=== PATIENT | male | born 1950 | race Caucasian/White ===

== ENCOUNTER 2018-01-19 03:23 | Emergency (ER) | payer MEDICARE ==
[~2018-01-19] VITALS: Ht 157.5 cm; Wt 117.9 kg
[~2018-01-19 03:23] MED LIST: ALPRAZOLAM0.25 M1 PO; ASPIRIN CHEW81 MG PO; BISACODYL5 MG PO; CEPHALEXIN500 MG PO; CLINDAMYCIN HC150 MG PO; FLAGYL500 MG PO; LEVAQUIN500 MG PO; METFORMIN HCL500 MG PO; METHADOSE40 M1 PO; METOPROLOL SUCC50 MG PO; PEPCID20 MG PO; PREDNISONE5 G1 PO; PROAIR HFA INH8.5 GM; PROMETHAZINE HC25 M1 PO; SUCRALFATE1 GM PO; ZOCOR20 MG PO; ZOFRAN ODT4 MG SL
[2018-01-19] MEDS ORDERED: TETANUS/DIPHTHERIA TOX ADULT 0.5 ML SYR IM ONE (03:45)
[2018-01-19] MEDS ORDERED: BACITRACIN ZINC 0.9GM TP ONE (04:11)
== END 2018-01-19 05:03 | disposition home or self-care (01) ==
LOC: ER 03:37
DX: S50.312A Abrasion of left elbow, initial encounter (principal); S61.412A Laceration without foreign body of left hand, initial encounter; W45.8XXA Other foreign body or object entering through skin, initial encounter; Y92.512 Supermarket, store or market as the place of occurrence of the external cause
CPT/HCPCS: 90714; 99283

== ENCOUNTER 2019-09-18 19:12 | Emergency (ER) | payer MEDICARE ==
[~2019-09-18] VITALS: Ht 157.5 cm; Wt 117.9 kg
[2019-09-18] MEDS ORDERED: ONDANSETRON HCL 4 MG ORAL DISINTEGRATING TAB PO ONE (20:30)
[2019-09-18] MEDS ORDERED: ONDANSETRON HCL 4 MG ORAL DISINTEGRATING TAB ONE (20:30)
--- OUTSIDE RECORDS SUMMARY | 2019-09-19 14:08 | XMS REPORT ---
Author Author [facility] Address Unknown Phone Unavailable Care Team Providers Care Home Advisor Name Role Phone Unavailable Unavailable Payers Payer Name Policy Type Policy Number Effective Date Expiration Date Problems This patient has no known problems. Allergies, Adverse Reactions, Alerts Allergy Name Allergy Type Status Severity Reaction(s) Onset Date Inactive Date Treating Clinician Comments No Known Allergies DA Active U 2016-02-21 00:00:00 Medications This patient has no known medications.
== END 2019-09-18 20:55 | disposition home or self-care (01) ==
LOC: ER 19:12
DX: R11.0 Nausea (principal); I10 Essential (primary) hypertension; E11.9 Type 2 diabetes mellitus without complications; K21.9 Gastro-esophageal reflux disease without esophagitis; E78.5 Hyperlipidemia, unspecified; Z79.84 Long term (current) use of oral hypoglycemic drugs; Z79.82 Long term (current) use of aspirin; F17.200 Nicotine dependence, unspecified, uncomplicated
CPT/HCPCS: 99282; Q0162

== ENCOUNTER 2019-12-04 14:40 | Emergency (ER) | payer MEDICARE ==
[~2019-12-04] VITALS: Ht 157.5 cm; Wt 117.9 kg
[2019-12-04 15:31] VITALS: BP 142/90
== END 2019-12-04 15:35 | disposition home or self-care (01) ==
LOC: ER 14:40
DX: F41.1 Generalized anxiety disorder (principal); I10 Essential (primary) hypertension; E11.9 Type 2 diabetes mellitus without complications; K21.9 Gastro-esophageal reflux disease without esophagitis; E78.5 Hyperlipidemia, unspecified; G89.29 Other chronic pain; Z79.891 Long term (current) use of opiate analgesic
CPT/HCPCS: 99282

== ENCOUNTER 2019-12-19 15:14 | Inpatient (IN) | payer MEDICARE, OTHER ==
[~2019-12-19] VITALS: Ht 157.5 cm; Wt 89.9 kg
[~2019-12-19 15:14] MED LIST changes: +ZOFRAN ODT4 MG PO; -ZOFRAN ODT4 MG SL
[2019-12-19] MEDS ORDERED: LORAZEPAM 0.5 MG TAB PO ONE (15:30)
[2019-12-19] MEDS ORDERED: LORAZEPAM 0.5 MG TAB ONE (15:48)
[2019-12-19 16:47] LABS: BASOPHILS % 0.4 % (0.0-1.0); EOSINOPHILS # (AUTO) 0.1 (0.0-0.4); EOSINOPHILS % 1.2 % (0.0-6.0); HEMOGLOBIN 9.5 g/dL (14.0-18.0); LYMPHOCYTES # (AUTO) 1.5 (1.0-3.2); MEAN CORPUSCULAR HEMOGLOBIN 22.1 pg (28-32); MEAN CORPUSCULAR HGB CONC 28.8 g/dL (31-35); MEAN CORPUSCULAR VOLUME 76.9 fL (81-99); MONOCYTES # (AUTO) 0.5 (0.2-0.8); MONOCYTES % 5.8 % (4.4-11.3); NEUTROPHILS % 74.4 % (38.7-80.0); PLATELET COUNT 322 x10e3/uL (140-360); RED BLOOD COUNT 4.29 x10e6/uL (4.3-5.7); RED CELL DISTRIBUTION WIDTH 17.8 % (11.7-14.4)
[2019-12-19 17:04] LABS: ALBUMIN 4.1 g/dL (3.5-5.0); ANION GAP 18.9 mmol/L (8-16); CALCIUM 11.4 mg/dL (8.4-10.2); CREATININE, SERUM 1.76 mg/dL (0.72-1.25)
[2019-12-19 17:11] LABS: CREATINE KINASE MB 1.7 ng/mL (0-5.0)
[2019-12-19] MEDS ORDERED: POTASSIUM CHLORIDE 20 MEQ TAB CR PO STA (17:23)
[2019-12-19 17:24] LABS: POTASSIUM 2.9 mmol/L (3.5-5.1)
--- NOTE | 2019-12-19 17:56 | Diagnostic Imaging Report ---
EXAM: CHEST SINGLE (NOT PORTABLE) DATE: 12/19/2019 3:25 PM INDICATION: Dyspnea ^ERMD ORDER ^[id number] ^[id number] ^Y COMPARISON: Chest x-ray, 02/20/2017 FINDINGS: Lines and tubes: None Cardiac silhouette is normal in size. There are patchy airspace opacities at both lung bases, similar to the most recent previous exam.. Pleural thickening is again seen along the lateral aspects of the right and left hemithorax. No pleural effusion or pneumothorax. Upper abdomen unremarkable. No acute bony abnormality. Anchors are seen in the left humeral head. IMPRESSION: Chronic bibasilar airspace opacities, similar to 02/20/2017, which likely represent scarring, possibly recurrent atelectasis or infection in the proper clinical setting. No pleural effusion or pneumothorax. Signed by: Dr. Glenn Houston M.D. on 12/19/2019 5:52 PM
--- NOTE | 2019-12-19 22:00 | NUR ---
patient pulled from lobby at 1217
[2019-12-19] MEDS ORDERED: DILTIAZEM HCL 5 MG/ML 5 ML VIAL IV STA (22:08)
[2019-12-19] MEDS ORDERED: POTASSIUM CHLORIDE 20 MEQ TAB CR PO ONE (22:12)
[2019-12-19] MEDS ORDERED: LORAZEPAM INJ 2 MG/ML VIAL IV ONE (23:45)
[2019-12-20] VITALS (9 sets, daily range): BP systolic 123–161; BP diastolic 61–84
--- NOTE | 2019-12-20 01:42 | NUR ---
PATIENT IN BED ASLEEP, REFUSED BP CUFF READING, PATIENT UNDER NO DISTRESS, BED LIGHT IS IN REACH
--- NOTE | 2019-12-20 04:50 | NUR ---
Admitted to room 201 via stretcher from home alone. Alert and orient to name, date, hospital, and diagnosis: new onset Afib, CP, hypokalemia. Ambulates with cane at bedside. Has home O2 at bedside. O2 @3L via NC, sat 99%. Skin warm and dry. Redness in bilateral groins and abdominal folds. c/o mild chronic right knee pain. Denies chest pain at this time. Meds reviewed and reconciled to med list. Last BM 12/19. Denies dysuria. Abdomen round and distended, hx hernia repair. Oriented to room. Call light within reach. Bed low and locked.
[2019-12-20 05:16] LABS: ANION GAP 15.9 mmol/L (8-16); CALCIUM 11.2 mg/dL (8.4-10.2); CREATININE, SERUM 1.54 mg/dL (0.72-1.25); POTASSIUM 3.9 mmol/L (3.5-5.1)
[2019-12-20 05:24] LABS: CREATINE KINASE MB 1.7 ng/mL (0-5.0)
--- NOTE | 2019-12-20 07:00 | NUR ---
BEDSIDE SHIFT REPORT RECEIVED FROM FOURDRINIER TENDER NURSE. PT DENIES NEEDS AT THIS TIME.
--- NOTE | 2019-12-20 15:12 | NUR ---
Nutrition Screen Note RD Recommendation for Physician: -Continue diet as ordered Plan of Care: RD following, monitoring for tolerance and adequacy Nutrition reason for involvement: Nutrition risk trigger MST Primary Diagnose(s): chest pain, unspecified hypokalemia PMH: None indicated in chart Ht: 62in Wt: 198.56lb BMI: 36.3kg/m2 IBW: 118lb +/- 10% RD Assessment: (12/19) Chart reviewed. Labs and meds reviewed. 69yo M, who was admitted for chest pain and hypokalemia. K has improved (WNL). Visited pt in the room. Pt was sound asleep. Observed almost 100% meal intake on bedside. Pt appeared to be obese without any noted muscle and fat loss. Per RN, no GI concern at this time. Will continue to monitor and follow. Current Diet: cardiac diet Malnutrition Evaluation (12/20/2019) The patient does not meet criteria for a specified degree of malnutrition at this time. Will re-evaluate at follow-up as appropriate. Diet Education Needs Assessment: Diet education not indicated. Nutrition Care Level: low Signed: Lizz Barbosa, MS, RD, LD
[2019-12-20] MEDS ORDERED: PROMETHAZINE HCL 25 MG TAB PO PRN (15:15)
[2019-12-20] MEDS ORDERED: BISACODYL 5 MG TAB EC PO SCH (15:15)
[2019-12-20] MEDS: METHADONE HCL 10 MG TAB PO SCH (16:51)
[2019-12-20] MEDS: SODIUM CHLORIDE 0.9% 1000ML 1,000 ML IV SCH (16:51)
[2019-12-20] MEDS: SUCRALFATE 1 GM TAB PO SCH (16:52)
[2019-12-20] MEDS: FAMOTIDINE 20 MG TAB PO SCH (16:52)
[2019-12-20 17:12] LABS: CREATINE KINASE MB 2.2 ng/mL (0-5.0)
[2019-12-20] MEDS: NYSTATIN/TRIAMCINOLONE 15 GM CR TOP SCH (17:49)
[2019-12-20] MEDS: SIMVASTATIN 20 MG TAB PO SCH (20:29)
[2019-12-20] MEDS: METOPROLOL SUCCINATE 50 MG TAB XL PO SCH (20:40)
[2019-12-20 23:30] LABS: BILIRUBIN,URINE SMALL (NEGATIVE); CLARITY,URINE CLOUDY (CLEAR); COLOR,URINE YELLOW (YELLOW); KETONES,URINE NEGATIVE (NEGATIVE); LEUKOCYTE ESTERASE ,URINE NEGATIVE (NEGATIVE); NITRITE,URINE NEGATIVE (NEGATIVE); PROTEIN,URINE DIPSTICK 2+ (NEGATIVE); URINE UROBILINOGEN 0.2 mg/dL (0.2 - 1)
[2019-12-20 23:39] LABS: BACTERIA,URINE MANY /HPF; WBC,URINE (MAN) 21-50 /HPF (0-5)
[2019-12-20 23:40] LABS: EPITHELIAL CELLS,URINE FEW /LPF; MUCUS,URINE MANY (RARE); RENAL EPITHELIAL CELLS,URINE MANY; TRANSITIONAL EPI CELLS,URINE MODERATE
[2019-12-21] VITALS (9 sets, daily range): BP systolic 87–142; BP diastolic 60–76
[2019-12-21] MEDS: SODIUM CHLORIDE 0.9% 1000ML 1,000 ML IV SCH ×3 (02:51→19:17)
[2019-12-21 05:08] LABS: BASOPHILS % 0.4 % (0.0-1.0); EOSINOPHILS # (AUTO) 0.4 (0.0-0.4); EOSINOPHILS % 4.3 % (0.0-6.0); HEMATOCRIT 29.3 % (38.2-49.6); HEMOGLOBIN 8.1 g/dL (14.0-18.0); LYMPHOCYTES # (AUTO) 2.5 (1.0-3.2); LYMPHOCYTES % 28.1 % (18.0-39.1); MEAN CORPUSCULAR HEMOGLOBIN 21.6 pg (28-32); MEAN CORPUSCULAR HGB CONC 27.6 g/dL (31-35); MEAN CORPUSCULAR VOLUME 78.1 fL (81-99); MONOCYTES # (AUTO) 0.7 (0.2-0.8); MONOCYTES % 8.1 % (4.4-11.3); NEUTROPHILS # (AUTO) 5.2 (2.1-6.9); NEUTROPHILS % 58.8 % (38.7-80.0); PLATELET COUNT 261 x10e3/uL (140-360); RED BLOOD COUNT 3.75 x10e6/uL (4.3-5.7); RED CELL DISTRIBUTION WIDTH 18.1 % (11.7-14.4)
[2019-12-21] MEDS: ACETAMINOPHEN 325 MG TAB PO PRN ×2 (05:20→20:41)
[2019-12-21 05:32] LABS: ANION GAP 9.6 mmol/L (8-16); CALCIUM 10.4 mg/dL (8.4-10.2); CHOL/HDL RATIO 4.7 (3.9-4.7); CREATININE, SERUM 1.27 mg/dL (0.72-1.25); MAGNESIUM 1.7 MG/DL (1.3-2.1); PHOSPHORUS 2.3 MG/DL (2.3-4.7); POTASSIUM 3.6 mmol/L (3.5-5.1)
[2019-12-21 05:54] LABS: THYROID STIMULATING HORMONE 0.316 uIU/mL (0.350-4.940)
--- NOTE | 2019-12-21 07:00 | NUR ---
BEDSIDE SHIFT REPORT RECEIVED FROM TRACK MAINTAINER NURSE. PT DENIES NEEDS AT THIS TIME.
[2019-12-21] MEDS: SUCRALFATE 1 GM TAB PO SCH ×2 (08:43→16:35)
[2019-12-21] MEDS: FAMOTIDINE 20 MG TAB PO SCH ×2 (08:43→16:35)
[2019-12-21] MEDS: ASPIRIN 81 MG CHEW TAB PO SCH (08:43)
[2019-12-21] MEDS: METHADONE HCL 10 MG TAB PO SCH (08:44)
[2019-12-21] MEDS: METOPROLOL SUCCINATE 50 MG TAB XL PO SCH (08:44)
[2019-12-21] MEDS: NYSTATIN/TRIAMCINOLONE 15 GM CR TOP SCH ×2 (08:44→16:35)
[2019-12-21] MEDS: ONDANSETRON HCL 4 MG ORAL DISINTEGRATING TAB PO SCH (08:44)
[2019-12-21] MEDS ORDERED: FAMOTIDINE 20 MG TAB PO SCH (09:00)
[2019-12-21 10:10] LABS: HYPOCHROMASIA SLIGHT
--- NOTE | 2019-12-21 10:45 | Consultation ---
DATE OF CONSULTATION: Cardiology Consultation CONSULTING PHYSICIAN: Clark Rose MD REASON FOR CONSULTATION: Tachycardia and also noted chest pain. HISTORY OF PRESENT ILLNESS: Mr. Martinez is a 69-year-old male with a pertinent past medical history of tobacco use, hypertension, myocardial infarction in 2012 without any intervention, diabetes mellitus, and hyperlipidemia. He reports that he came into the ER due to ongoing anxiety attacks, especially in the evening. They have been ongoing for the last two months. He reports that he is quite lonely and sad and depressed. He reports that he had a son, who a few years ago and has one living son, who lives away from him and he is and he is quite lonely and lately in the evenings, he has been getting to a point that he is calling people to come stay with him because of feeling lonely. He denies any chest pain, but does endorse some shortness of breath, especially with exertion and also chronic fatigue. He denies any fever, chills, abdominal pain, edema, orthopnea, dysuria, or palpitations. PAST MEDICAL HISTORY: As above. REVIEW OF SYSTEMS: As stated above. PAST SURGICAL HISTORY: Heart catheterization in 2011 without any intervention. He reports he was informed he had mild disease at that time. SOCIAL HISTORY: As dictated above. PHYSICAL EXAMINATION: VITAL SIGNS: Temperature 98.5, pulse 66, respiratory rate 18, blood pressure 130/76, and oxygen saturation 95% on room air. GENERAL: Alert and oriented x3. Resting comfortably in bed. Does not appear to be in any acute distress. LUNGS: Clear to auscultation throughout. No wheezing. No rhonchi or crackles. CARDIOVASCULAR: Regular rate and rhythm, 3/6 systolic murmur noted. No S3 or S4. ABDOMEN: Rounded, soft, and nontender. Normoactive bowel sounds. EXTREMITIES: Lower extremity, 2+ pitting edema. NECK: Supple with JVD noted. CARDIOVASCULAR MEDICATIONS: 1. Aspirin 81 mg p.o. daily. 2. Metoprolol 50 mg p.o. daily. 3. Simvastatin 20 mg p.o. at bedtime. LABORATORY DATA: WBC 8.92, hemoglobin 8.1, hematocrit 29.3, and platelets 261. Sodium 140, potassium 3.6, BUN 22, creatinine 1.27, GFR 57, and glucose 132. Chest x-ray on admission with chronic bibasilar airspace opacity, which is similar to his last in 2017. Atrial fibrillation noted on his presenting EKG currently. TELEMETRY: Reveals atrial flutter with rapid ventricular response at 4 o'clock this morning, moments of sinus bradycardia. IMPRESSION: 1. Paroxysmal atrial fibrillation, atrial flutter. 2. Coronary artery disease. 3. Hypertension. 4. Diabetes mellitus. 5. Anxiety, depression. 6. Loneliness. RECOMMENDATIONS: Maintain on telemetry at all time. Medications adjusted accordingly. CHADS-VASc score of 4. Consider anticoagulation. We will discuss this with the patient. Address social issue. We thank you for this consultation and allowing us to participate in this patient's care. Consider a stress test or ischemic evaluation, this may be done as outpatient. The patient will need close monitoring. Dictated by Carolyne Jackson NP MD NIRU Jimenez/LA /[id number]
[2019-12-21] MEDS: APIXABAN 5 MG TABLET PO SCH ×2 (10:53→16:35)
--- NOTE | 2019-12-21 11:00 | Consultation ---
DATE OF CONSULTATION: 12/21/2019 Urology Consultation Consultation is called by Dr. Rsoe service for scrotal swelling. HISTORY OF PRESENT ILLNESS: Mr. Martinez is a poorly compliant 69-year-old male patient, admitted to the hospital with chest pain, paroxysmal atrial fibrillation, and methadone addiction. Urologically, a consultation was requested for scrotal swelling. The patient has had a hydrocele at least recorded in the chart since 2013, sounds like longer than that. It is approximately 8-10 cm in diameter and has been relatively stable. The patient denied hematuria, denied dysuria. PAST MEDICAL HISTORY: As above. Hypertension, chronic renal insufficiency, chronic anemia, coronary artery disease. MEDICATIONS: Please see MAR. ALLERGIES: NKDA. SOCIAL HISTORY: Positive methadone. FAMILY HISTORY: Denied urologic stones or malignancies. REVIEW OF SYSTEMS: Noncontributory other than problems mentioned above for 12-organ systems. PHYSICAL EXAMINATION: GENERAL: An elderly male, obese, lying in no acute distress. VITAL SIGNS: Currently temperature 98.5, pulse 66, respirations 18, and blood pressure 130/76. HEENT: Sclerae anicteric. NECK: Supple, BACK: Without costovertebral angle tenderness bilaterally. ABDOMEN: Obese. There is question of fluid wave. : Circumcised normal phallus. Scrotum, no lesions. Enlarged left hemiscrotum. NEURO: Moves all 4 extremities. PSYCH: Alert and mood appropriate. SKIN: Intact. Normal color. PERTINENT LABORATORY DATA: Sodium 140, potassium 3.6, chloride 108, bicarb 26, BUN 22, creatinine 1.27, glucose 94. Hemoglobin 8.1, hematocrit 29.3, platelet count 261,000, and white cell count 8920. Urinalysis 11-20 reds, 21-50 whites. In 2014, scrotal ultrasound revealing a large left hydrocele. In 2014, a CT scan revealing two 5 mm nonobstructing calculi in the right kidney. IMPRESSION: 1. Left-sided hydrocele. 2. Urinary tract infection, question. 3. Microscopic hematuria. 4. Kidney stone. 5. Coagulopathy. 6. Obesity. 7. Anemia. 8. Chronic kidney disease. 9. Hypertension. PLAN: Urologically, the patient is stable. May safely be discharged on empiric antibiotics with outpatient followup for culture sensitivity. We will obtain a KUB as an outpatient to check the status of the kidney stones that may cause chronic urinary tract infections. Thank you for allowing me to participate in the care of your patient. We will be happy to follow along with you. MD MOISES Mensah/MODL /[id number]
[2019-12-21] MEDS: ASCORBIC ACID 500 MG TAB PO SCH (16:35)
[2019-12-21] MEDS: SIMVASTATIN 20 MG TAB PO SCH (20:40)
[2019-12-22] VITALS: BP 110/64
[2019-12-22 04:00] VITALS: BP 126/62
[2019-12-22 05:10] LABS: BASOPHILS % 0.4 % (0.0-1.0); EOSINOPHILS # (AUTO) 0.4 (0.0-0.4); EOSINOPHILS % 4.9 % (0.0-6.0); HEMATOCRIT 28.2 % (38.2-49.6); HEMOGLOBIN 7.9 g/dL (14.0-18.0); LYMPHOCYTES # (AUTO) 3.2 (1.0-3.2); LYMPHOCYTES % 39.4 % (18.0-39.1); MEAN CORPUSCULAR HEMOGLOBIN 22.3 pg (28-32); MEAN CORPUSCULAR VOLUME 79.4 fL (81-99); MONOCYTES # (AUTO) 0.6 (0.2-0.8); MONOCYTES % 7.6 % (4.4-11.3); NEUTROPHILS # (AUTO) 3.8 (2.1-6.9); NEUTROPHILS % 47.4 % (38.7-80.0); PLATELET COUNT 256 x10e3/uL (140-360); RED BLOOD COUNT 3.55 x10e6/uL (4.3-5.7); RED CELL DISTRIBUTION WIDTH 18.2 % (11.7-14.4)
[2019-12-22 05:29] LABS: ANION GAP 10.7 mmol/L (8-16); BLOOD UREA NITROGEN 17 mg/dL (7-26); BUN/CREATININE RATIO 14 (6-25); CARBON DIOXIDE 26 mmol/L (22-29); CHLORIDE 109 mmol/L (98-107); CREATININE, SERUM 1.19 mg/dL (0.72-1.25); EST GLOMERULAR FILTRATION RATE > 60 ML/MIN (60-); GLUCOSE 100 mg/dL (74-118); MAGNESIUM 1.8 MG/DL (1.3-2.1); POTASSIUM 3.7 mmol/L (3.5-5.1); SODIUM 142 mmol/L (136-145)
[2019-12-22 07:28] VITALS: BP 135/67
[2019-12-22 07:45] VITALS: BP 135/67
[2019-12-22] MEDS: ASPIRIN 81 MG CHEW TAB PO SCH (09:06)
[2019-12-22] MEDS: APIXABAN 5 MG TABLET PO SCH ×2 (09:06→17:08)
[2019-12-22] MEDS: SUCRALFATE 1 GM TAB PO SCH ×2 (09:06→17:08)
[2019-12-22] MEDS: FAMOTIDINE 20 MG TAB PO SCH ×2 (09:06→17:08)
[2019-12-22] MEDS: METHADONE HCL 10 MG TAB PO SCH (09:13)
[2019-12-22] MEDS: ONDANSETRON HCL 4 MG ORAL DISINTEGRATING TAB PO SCH (09:14)
[2019-12-22] MEDS: NYSTATIN/TRIAMCINOLONE 15 GM CR TOP SCH ×2 (09:14→17:08)
[2019-12-22] MEDS: ASCORBIC ACID 500 MG TAB PO SCH ×2 (09:14→17:08)
[2019-12-22] MEDS: METOPROLOL SUCCINATE 50 MG TAB XL PO SCH (09:14)
[2019-12-22 09:41] LABS: HYPOCHROMASIA MODERATE
--- NOTE | 2019-12-22 10:50 | NUR ---
Pt sleeping soundly and no family present. Facility Maintenance Technician left a card describing availability of fiberglass grinder and instructions on how to contact a fiberglass grinder. SREE AGUILAR Facility Maintenance Technician Spiritual Care Department O: [phone]
[2019-12-22 11:05] VITALS: BP 125/63
--- NOTE | 2019-12-22 12:50 | Progress Note ---
DATE: Cardiology Progress Note SUBJECTIVE: The patient feels some slight dizziness on standing. No chest pain or shortness of breath. OBJECTIVE: VITAL SIGNS: Temperature is 98.4, heart rate 62, respirations are 17, blood pressure is 125/63, and oxygen saturation 95% on room air. GENERAL: Well appearing, in no apparent distress, alert and oriented x3. CARDIOVASCULAR: Regular rate and rhythm with ectopy. LUNGS: Clear to auscultation. ABDOMEN: Soft, nontender, and nondistended. EXTREMITIES: No clubbing, cyanosis, or edema. NEUROLOGIC: No focal deficits noted. CARDIOVASCULAR MEDICATIONS: Reviewed. LABORATORY VALUES: Reviewed. IMPRESSION: 1. Paroxysmal atrial fibrillation and atrial flutter. 2. Coronary artery disease. 3. Hypertension. 4. Diabetes mellitus. 5. Anxiety, depression. RECOMMENDATIONS: Continue Eliquis for anticoagulation. Continue metoprolol for heart rate control. The patient would likely require stress test for ischemic evaluation as an outpatient. The patient is stable for discharge from a cardiovascular standpoint. Juan A Monk DO BM/MODL /[id number]
--- NOTE | 2019-12-22 13:09 | NUR ---
Patient c/o of pain with voiding. Bladder scan was done post void, 123mL urine was detected in bladder from the scan. Dr. Delarosa was called and he gave a new order. Will follow doctor's orders and continue to monitor.
[2019-12-22] MEDS ORDERED: TAMSULOSIN HCL 0.4 MG CAP PO ONE (14:15)
[2019-12-22 15:14] VITALS: BP 111/57
[2019-12-22] MEDS: ACETAMINOPHEN 325 MG TAB PO PRN (15:25)
[2019-12-22] MEDS ORDERED: ASCORBIC ACID500 MG PO (16:56)
[2019-12-22] MEDS ORDERED: PYRIDIUM100 MG PO (16:56)
[2019-12-22] MEDS ORDERED: EFFEXOR XR 3737.5 MG PO (16:56)
[2019-12-22] MEDS ORDERED: Nystatin/Triamcinolone TOP (16:56)
[2019-12-22] MEDS ORDERED: ELIQUIS5 MG PO (16:56)
[2019-12-22] MEDS ORDERED: FLOMAX0.4 MG PO (16:56)
[2019-12-22] MEDS ORDERED: PHENAZOPYRIDINE HCL 100 MG TAB PO SCH (17:00)
--- NOTE | 2019-12-22 17:54 | NUR ---
Patient was given discharge instructions, prescriptions, and referrals at 1746. Patient's IV and tele monitor was removed. Patient called his ride and asked them to come get him. This travel writer assisted the patient with his shoes and belongings. Patient was left at bedside until his ride arrives. Once his ride arrives the PCT will assist patient to the front door. Will continue to monitor until then.
--- NOTE | 2019-12-22 19:11 | Discharge Summary ---
PERTINENT HISTORY AND PHYSICAL FINDINGS/CHIEF COMPLAINT: The patient stated he did not have chest pain, but had an anxiety attack. HISTORY OF PRESENT ILLNESS: Mr. Martinez is a 69-year-old male who stated that he was at Dr. Rafael Romero's office and fell asleep in 2011, was taken to [facility] and left heart catheterization was done, but states that he has been having anxiety attacks for the past two months and worse for the past few days. Dr. Mando Angel was his PCP last year and he was prescribed Xanax. He has an appointment with Psychiatry on or about 12/27/2019. PAST MEDICAL HISTORY: Hypertension, MS in 2011 without any stent placement, 12/04 systolic ejection murmur, 11/2015 had pneumonia, right fore leg cellulitis, obesity, type 2 diabetes mellitus with hyperlipidemia, normocytic anemia, chronic pain syndrome, hearing loss, uses oxygen at home, hypercalcemia due to dehydration episode on 09/11/2016 with acute gastroenteritis and diarrhea. PAST SURGICAL HISTORY: Left heart catheterization, bilateral shoulder reconstruction, left wrist surgery, left elbow ulnar nerve surgery, bilateral inguinal hernia repair, right thumb surgery, left knee arthroscopy, and cholecystectomy. FAMILY HISTORY: Father, alcoholism, cancer of the colon and stomach. Mother, thyroid problems. Brother, cancer of the bladder and spine. SOCIAL HISTORY: He is with one child. He has a history of smoking one pack per day for 40 years, i.e. 40 pack years. Has a history is drinking alcohol socially. He denies illicit drugs, but does use methadone 50 mg per day currently and has a history of abusing prescription drugs such as hydrocodone. ALLERGIES: NO KNOWN ALLERGIES. ADMITTING DIAGNOSES: 1. Acute on chronic anxiety with panic attacks. 2. Chronic pain syndrome with prescription addiction. 3. Acute kidney injury versus chronic kidney disease with unknown baseline creatinine. 4. New onset atrial fibrillation with rapid ventricular rate. 5. Possible acute urinary tract infection, present on arrival. 6. Scrotal swelling. 7. Acute hypokalemia. 8. Acute hypercalcemia. 9. Controlled hypertension. 10. Controlled type 2 diabetes mellitus. 11. Hyperlipidemia. DISCHARGE DIAGNOSES: 1. Acute on chronic anxiety with panic attacks. 2. Chronic pain syndrome with methadone addiction. 3. Acute kidney injury versus chronic kidney disease. 4. Paroxysmal atrial fibrillation, new onset, currently heart rate controlled. 5. Moderate to severe aortic stenosis. 6. Acute urinary tract infection, present on arrival. 7. Urinary retention. 8. Left hydrocele. 9. Acute hypercalcemia, improved. 10. Controlled hypertension. 11. Controlled type 2 diabetes mellitus. 12. Hyperlipidemia. HOSPITAL COURSE: On admission, WBCs 8.12, hemoglobin 9.5, hematocrit 33, and platelets 322. Sodium 139, potassium 2.9, chloride 100, CO2 of 23, BUN 23, creatinine 1.76, GFR 39, glucose 125, and calcium 11.4. Cardiac enzymes were negative x4 sets as far as the troponin I. B type nitrate peptide was 74.9. Hemoglobin A1c during his stay was 5.8%. Urinalysis was positive. Preliminary urine culture shows no growth, it was collected on December 19. The patient remains afebrile and white blood cell count remains within normal limits. Chest x-ray on December 18 showed chronic bibasilar airspace opacities similar to 02/20/2017, which like really represent scarring, possibly recurrent atelectasis. The emergency department physician's chief complaint was chest pain. Therefore, Cardiology was consulted. Per Dr. Metzger's consultation note, the patient has paroxysmal atrial fibrillation, atrial flutter, coronary artery disease, hypertension, CHADS-VASc score of 4. The patient can have a stress test for ischemic evaluation on an outpatient basis. He was seen again today by Dr. Monk. Plan is to continue Eliquis for anticoagulation and continue metoprolol for heart rate control. Additional consult included Dr. Lobito Tavera. The patient was seen by SHERIDAN Shaw, certified with the with Psychiatry today who recommended Effexor 37.5 mg p.o. daily for his anxiety and panic attacks. The patient to follow up with Psychiatry on an outpatient basis. Dr. Trey Delarosa with Urology was also consulted. The patient had complained of difficulty initiating a stream today and some pain, thus he was started on Flomax. The patient will also be on vitamin C and Pyridium on an outpatient basis. His ejection fraction was about 50% plus with aortic stenosis. Regarding his swollen scrotum, he does have left hydrocele and he is to follow up with Urology in one month for repair of the left hydrocele. Continue with scrotal support. Postvoid residual after bladder scan was 123 mL today. Prescription for Flomax and other aforementioned medications provided on discharge. Calcium level 10 today, improved with hydration. He has been getting his methadone from [facility]. He is to follow up with them. Follow up with PCP, Dr. Maik Sanchez in 1-2 weeks. Laboratory data the Today the day of discharge, WBCs 8.0, hemoglobin 7.9, hematocrit 28.2, and platelets 256. Sodium 142, potassium 3.7, chloride 109, CO2 of 26, BUN 17, creatinine 1.19, and estimated GFR greater than 60. Glucose 100. Fingerstick blood glucose levels 107, 111 and 155. Calcium 10.0. Magnesium 1.8. Dictated by Darius Ulloa, [employer] Clark Rose MD HWP/MODL /[id number]
[2019-12-22] MEDS ORDERED: BUSPIRONE HCL 5 MG TAB PO PRN (19:15)
--- NOTE | 2019-12-23 05:27 | Consultation ---
DATE OF CONSULTATION: 12/22/2019 Psychiatric Consultation REASON FOR CONSULTATION: To evaluate the patient's mood and history of methadone use. The patient evaluated and events noted. HISTORY OF PRESENT ILLNESS: The patient is a 69-year-old male admitted to the hospital for chest pain, hyperkalemia, and abnormal heart rhythm. Psychiatric consultation is called to evaluate the patient's mood. As per the medical record, the patient has history of tobacco use, hypertension, myocardial infarction, diabetes, and hyperlipidemia. He came to the hospital due to chest pain. He was complained of anxiety especially at nighttime. Upon evaluation today, the patient is found to be in the room. He is alert, awake, and oriented to situation. He reports feeling increasingly anxious and depressed lately due to his health and also feeling lonely. He reports having tremors, feeling scared, sweaty multiple times in the day with the episode. He reports intermittent sleep issues, intermittent appetite problem. He denies passive wish and denies any suicidal ideation. He denies any homicidal ideation. He denies any hallucination. He is not paranoid. He is calm and cooperative. PAST PSYCHIATRIC HISTORY: He denies past psychiatric history. He denies past suicide attempt. He denies alcohol or drug use. FAMILY HISTORY: Denies. SOCIAL HISTORY: The patient lives alone. MENTAL STATUS EXAM: The patient is an elderly male. He is alert, awake, and oriented to situation. He is anxious and depressed. Affect is congruent with mood. Psychomotor state is passive. Denies suicidal or homicidal ideation. Denies any hallucination. Thought process is concrete. No delusion elicited. Insight and judgment are fair. Memory appears to be grossly intact. CURRENT MEDICATIONS: 1. Pyridium. 2. Vitamin C. 3. Eliquis. 4. Pepcid. 5. Nystatin. 6. Carafate. 7. Tylenol. 8. Zofran. 9. Metoprolol. 10. Methadone 50 mg p.o. daily. 11. Aspirin. 12. Phenergan. 13. Zocor. 14. Sodium chloride. 15. Flomax. 16. Dulcolax. CURRENT LABS: WBC 8, RBC 3.55, hemoglobin 7.9, hematocrit 28.2, platelets 256. Sodium 142, potassium 3.7, chloride 109, CO2 of 26, BUN 17, creatinine 1.19. ASSESSMENT: 1. Panic disorder without agoraphobia. 2. Adjustment disorder with mixed mood. PLAN: 1. Add Wellbutrin 75 mg p.o. daily. 2. Add BuSpar 5 mg p.o. b.i.d. as needed. 3. Discontinue Effexor XR. 4. Monitor for mood. 5. Supportive therapy. Thank you for this consultation. Recommend follow up with outpatient psychiatry. Dictated by Buffy Guzman PA-C Lobito Tavera MD QTV/MODL /[id number]
[2019-12-23] MEDS ORDERED: VENLAFAXINE HCL 37.5MG XR CAP PO SCH (09:00)
[2019-12-23] MEDS ORDERED: BUPROPION HCL 75 MG TAB PO SCH (09:00)
[2019-12-23] MEDS ORDERED: TAMSULOSIN HCL 0.4 MG CAP PO SCH (17:30)
== END 2019-12-22 20:38 | disposition home or self-care (01) | DRG 880 ==
LOC: ER 15:14 → ERHOLD 23:31 → MED/SURG2 12-20 04:51 → OBSVTOIN 12-21 10:10
PROVIDERS: ADMIT Internal Medicine; ATTEND Internal Medicine
DX: F41.9 Anxiety disorder, unspecified (principal); N17.9 Acute kidney failure, unspecified; N39.0 Urinary tract infection, site not specified; F11.20 Opioid dependence, uncomplicated; I48.92 Unspecified atrial flutter; I25.2 Old myocardial infarction; E11.9 Type 2 diabetes mellitus without complications; D64.9 Anemia, unspecified; G89.4 Chronic pain syndrome; E87.6 Hypokalemia; E83.52 Hypercalcemia; I35.0 Nonrheumatic aortic (valve) stenosis; R33.9 Retention of urine, unspecified; I48.0 Paroxysmal atrial fibrillation; N50.89 Other specified disorders of the male genital organs; N43.3 Hydrocele, unspecified; R30.0 Dysuria; E87.5 Hyperkalemia; F43.23 Adjustment disorder with mixed anxiety and depressed mood; E66.9 Obesity, unspecified; Z68.36 Body mass index [BMI] 36.0-36.9, adult; I25.10 Atherosclerotic heart disease of native coronary artery without angina pectoris; Z99.81 Dependence on supplemental oxygen
CPT/HCPCS: 36415; 71045; 80048; 80053; 80061; 81001; 82550; 82553; 82948; 83036; 83735; 83880; 84100; 84443; 84484; 85025; 87086; 93005; 93306; 96361; 99285; G0378; J2060; J7030; Q0162

== ENCOUNTER 2019-12-24 17:33 | Emergency (ER) | payer MEDICARE, OTHER ==
[~2019-12-24] VITALS: Ht 157.5 cm; Wt 89.8 kg
[~2019-12-24 17:33] MED LIST changes: +ASCORBIC ACID500 MG PO; +EFFEXOR XR 3737.5 MG PO; +ELIQUIS5 MG PO; +FLOMAX0.4 MG PO; +Nystatin/Triamcinolone TOP; +PYRIDIUM100 MG PO
[2019-12-24] MEDS ORDERED: METOPROLOL SUCCINATE 25 MG TAB XL PO ONE (18:00)
[2019-12-24] MEDS ORDERED: CLONAZEPAM 1 MG TAB PO ONE (18:00)
[2019-12-24] MEDS ORDERED: APIXABAN 5 MG TABLET PO ONE (18:00)
== END 2019-12-24 18:24 | disposition home or self-care (01) ==
LOC: ER 17:33
DX: F41.0 Panic disorder [episodic paroxysmal anxiety] (principal); F13.239 Sedative, hypnotic or anxiolytic dependence with withdrawal, unspecified; I10 Essential (primary) hypertension; E11.9 Type 2 diabetes mellitus without complications; E78.5 Hyperlipidemia, unspecified; G89.29 Other chronic pain; Z79.891 Long term (current) use of opiate analgesic
CPT/HCPCS: 99282

== ENCOUNTER 2020-02-15 20:55 | Observation (INO) | payer MEDICARE, OTHER ==
[~2020-02-15] VITALS: Ht 157.5 cm; Wt 101.6 kg
[2020-02-15] MEDS ORDERED: ASPIRIN 81 MG CHEW TAB PO ONE (21:15)
[2020-02-15 21:32] LABS: BASOPHILS % 0.4 % (0.0-1.0); EOSINOPHILS # (AUTO) 0.3 (0.0-0.4); EOSINOPHILS % 3.7 % (0.0-6.0); HEMATOCRIT 24.2 % (38.2-49.6); LYMPHOCYTES # (AUTO) 1.5 (1.0-3.2); LYMPHOCYTES % 19.2 % (18.0-39.1); MEAN CORPUSCULAR HGB CONC 27.3 g/dL (31-35); MEAN CORPUSCULAR VOLUME 77.1 fL (81-99); MONOCYTES # (AUTO) 0.7 (0.2-0.8); MONOCYTES % 8.9 % (4.4-11.3); NEUTROPHILS # (AUTO) 5.2 (2.1-6.9); NEUTROPHILS % 67.4 % (38.7-80.0); PLATELET COUNT 297 x10e3/uL (140-360); RED BLOOD COUNT 3.14 x10e6/uL (4.3-5.7); RED CELL DISTRIBUTION WIDTH 18.6 % (11.7-14.4)
[2020-02-15 21:37] LABS: HEMOGLOBIN 6.6 g/dL (14.0-18.0)
--- NOTE | 2020-02-15 21:38 | Emergency Department Note ---
History of Present Illnes History of Present Illness Chief Complaint: Abdominal Complaints History of Present Illness This is a 69 year old male who presents with c/o left lateral chest pain since sunday. states pain is worse with inspiration and movement, seen at [facility] for same had cardiac workup, ct chest which was negative, was diagnosed with left chest wall pain/strain. pt prescribed lidocaine patches, presents today because he still has the pain . Historian: Patient Arrival Mode: Car Onset (how long ago): week(s) (1) Radiation: non-radiation Severity: moderate Onset quality: sudden Duration (how long): day(s) (7) Timing of current episode: constant Progression: unchanged Relieving factors: none Exacerbating factors: movement, other (deep breath) Associated symptoms: denies other symptoms Treatments prior to arrival: other (lidocaine patches) Past Medical/Family History Physician Review I have reviewed the patient's past medical and family history. Any updates have been documented here. Past Medical History Recent Fever: No Clinical Suspicion of Infectio: No New/Unexplained Change in Ment: No Past Medical History: Hypertension, Diabetes, COPD, GERD, Hyperlipedemia Other Medical History: PNEUMONIA X 2 ACID REFLUX CHRONIC PAIN (RX'D METHADONE) Past Surgical History: Cholecysctectomy Other Surgery: HERNIA REPAIR, R WRIST, R THUMB, L AND R SHOULDER, L KNEE, CARPAL TUNNEL L ELBOW Social History Smoking Cessation: Former smoker Alcohol Use: None Any Illegal Drug Use: No Family History Family history of heart diseas: Yes Other Last Tetanus: UNK Review of Systems Review of Systems Constitutional: no symptoms EENTM: no symptoms Cardiovascular: as per HPI Respiratory: no symptoms Gastrointestinal: no symptoms Genitourinary: no symptoms Musculoskeletal: as per HPI Neurological: no symptoms Psychological: no symptoms Endocrine: no symptoms Hematological/Lymphatic: no symptoms Review of other systems All other systems reviewed and negative. Physical Exam Related Data Allergies: Coded Allergies: No Known Allergies (Unverified , 07/29/17) Triage Vital Signs Vital Signs Date Time Temp Pulse Resp B/P (MAP) Pulse Ox O2 Delivery O2 Flow Rate FiO2 02/15/20 21:04 97.2 72 21 147/83 96 Vital signs reviewed: Yes Physical Exam CONSTITUTIONAL Constitutional: well-developed, well-nourished HENT HENT: normocephalic, atraumatic, oropharynx clear/moist, nose normal HENT L/R: left ext ear normal, right ext ear normal EYES Eyes: PERRL, conjunctivae normal NECK Neck: ROM normal PULMONARY Pulmonary: effort normal, breath sounds normal CARDIOVASCULAR Cardiovascular: regular rhythm, heart sounds normal, capillary refill normal, normal rate GASTROINTESTINAL Abdominal: soft, nontender, bowel sounds normal GENITOURINARY Genitourinary: exam deferred SKIN Skin: warm, dry MUSCULOSKELETAL Musculoskeletal: other (left lateral chest wall tender to palpation, reprocuces his chest pain) NEUROLOGICAL Neurological: alert, oriented x 3, no gross motor or sensory deficits PSYCHOLOGICAL Psychological: mood/affect normal, judgement normal Results Laboratory Laboratory Laboratory Tests Test 02/15/20 21:21 White Blood Count 7.75 x10e3/uL (4.8-10.8) Red Blood Count 3.14 x10e6/uL (4.3-5.7) Hemoglobin 6.6 g/dL (14.0-18.0) Hematocrit 24.2 % (38.2-49.6) Mean Corpuscular Volume 77.1 fL (81-99) Mean Corpuscular Hemoglobin 21.0 pg (28-32) Mean Corpuscular Hemoglobin Concent 27.3 g/dL (31-35) Red Cell Distribution Width 18.6 % (11.7-14.4) Platelet Count 297 x10e3/uL (140-360) Neutrophils (%) (Auto) 67.4 % (38.7-80.0) Lymphocytes (%) (Auto) 19.2 % (18.0-39.1) Monocytes (%) (Auto) 8.9 % (4.4-11.3) Eosinophils (%) (Auto) 3.7 % (0.0-6.0) Basophils (%) (Auto) 0.4 % (0.0-1.0) Neutrophils # (Auto) 5.2 (2.1-6.9) Lymphocytes # (Auto) 1.5 (1.0-3.2) Monocytes # (Auto) 0.7 (0.2-0.8) Eosinophils # (Auto) 0.3 (0.0-0.4) Basophils # (Auto) 0.0 (0.0-0.1) Absolute Immature Granulocyte (auto 0.03 x10e3/uL (0-0.1) Sodium Level 144 mmol/L (136-145) Potassium Level 4.2 mmol/L (3.5-5.1) Chloride Level 108 mmol/L (98-107) Carbon Dioxide Level 25 mmol/L (22-29) Anion Gap 15.2 mmol/L (8-16) Blood Urea Nitrogen 24 mg/dL (7-26) Creatinine 1.31 mg/dL (0.72-1.25) Estimat Glomerular Filtration Rate 55 ML/MIN (60-) BUN/Creatinine Ratio 18 (6-25) Glucose Level 117 mg/dL (74-118) Calcium Level 10.6 mg/dL (8.4-10.2) Total Bilirubin 0.4 mg/dL (0.2-1.2) Aspartate Amino Transf (AST/SGOT) 21 IU/L (5-34) Alanine Aminotransferase (ALT/SGPT) 18 IU/L (0-55) Alkaline Phosphatase 88 IU/L (40-150) Creatine Kinase 81 IU/L (30-200) Creatine Kinase MB 2.20 ng/mL (0-5.0) Troponin I 0.006 ng/mL (0-0.300) Total Protein 6.8 g/dL (6.5-8.1) Albumin 3.3 g/dL (3.5-5.0) Globulin 3.5 g/dL (2.3-3.5) Albumin/Globulin Ratio 0.9 (0.8-2.0) Laboratory Tests Test 02/15/20 21:21 Lab results reviewed: Yes Imaging Imaging results reviewed: Yes Impressions Patient Name: SAMMI MEANS MR #: [id number] : 1950 Age/Sex: 69/M Req #: [id number] Adm Physician: Ordered by: RON SPENCE MD Report #: [id number] Location: ER Room/Bed: Procedure: [id number] DX/CHEST SINGLE (PORTABLE) Exam Date: Exam Time: REPORT STATUS: Signed EXAMINATION: CHEST SINGLE (PORTABLE) INDICATION: ^left lateral chest pain ^Y COMPARISON: 12/19/2019 FINDINGS: AP view TUBES and LINES: None. LUNGS: Bibasilar airspace opacities, right greater than left, are unchanged when compared to the previous study and again likely represents scarring. PLEURA: No pleural effusion or pneumothorax. HEART AND MEDIASTINUM: Fullness of the upper mediastinum and right heart border likely secondary to technique. BONES AND SOFT TISSUES: No acute osseous lesion. Soft tissues are unremarkable. UPPER ABDOMEN: No free air under the diaphragm. IMPRESSION: Fullness of the upper mediastinum is likely secondary to technique. Nonurgent repeat examination with dedicated PA and lateral radiographs is recommended when clinically feasible. Unchanged bibasilar opacities, right greater than left, again likely represents scarring. Signed by: Nataliia Zarco MD on 02/15/2020 10:22 PM Dictated By: NATALIIA ZARCO MD 21 Transcribed By: IVONE on 02/15/202221 COPY TO: RON SPENCE MD~ Procedures 12 Lead ECG Interpretation Director Of Global Marketing: Interpreted by ED physician Rhythm: sinus rhythm Rate: normal (67) QRS axis: normal ST segments normal: Yes T waves normal: Yes Clinical Impression: normal ECG Critical Care Time Subsequent provider I assumed direction of critical care for this patient from another provider of my specialty. Assessment & Plan Assessment & Plan Problems: (1) Chest wall pain (2) Anemia Assessment & Plan pt with left lateral chest pain worse with movement and inspiration, worked up for same at [facility] including cardiac and a ct chest that were negative. cbc, cmp, ekg, cardiac enzymes. cxr ordered to eval for myocardial infarction, pneumonia, electrolyte abnormality\ pt's hgb 6.6. pt has h/o chronic anemia, states was told hg was 6 at [facility], states recieved 2 units of prbc's, and was discharged with a hemoglobin over 7, states he also had and egd and colonoscopy as well while he was in [facility]. pt typed and screened and one unit of prbc's ordered to be transfused i spoke with dr lee place in obs, clear liquid diet Depart Disposition: ADMITTED Last Vital Signs Date Time Temp Pulse Resp B/P (MAP) Pulse Ox O2 Delivery O2 Flow Rate FiO2 02/15/20 21:04 97.2 72 21 147/83 96 Home Meds Active Scripts Venlafaxine Hcl* (EFFEXOR XR 37.5MG CAPCR*) 37.5 Mg Capcr, 37.5 MG PO DAILY for 30 Days, #30 CAP 0 Refills Prov:ILAN WILLIS NP 12/22/19 Tamsulosin Hcl* (FLOMAX*) 0.4 Mg Cap, 0.4 MG PO DAILY@1730 for 30 Days, #30 CAP 0 Refills Prov:ILAN WILLIS NP 12/22/19 Phenazopyridine Hcl (PYRIDIUM) 100 Mg Tablet, 100 MG PO BID for 3 Days, #6 TAB 0 Refills Prov:ILAN WILLIS NP 12/22/19 [Nystatin/Triamcinolone] 15 GM CR No Conflict Check, 1 GM TOP BID for 14 Days, #1 TUB 1 Refill Prov:ILAN WILLIS NP 12/22/19 Ascorbic Acid (ASCORBIC ACID) 500 Mg Tablet, 500 MG PO BID for 14 Days, #30 TAB 0 Refills Prov:ILAN WILLIS NP 12/22/19 Apixaban (Eliquis) 5 Mg Tablet, 5 MG PO BID for 30 Days, #60 TAB 0 Refills Prov:ILAN WILLIS NP 12/22/19 Simvastatin (ZOCOR) 20 Mg Tablet, 20 MG PO HS for 30 Days, TAB 2 Refills Prov:DEE BOLANOS MD 03/06/16 Metformin Hcl (METFORMIN HCL) 500 Mg Tablet, 500 MG PO BIDWM for 30 Days, TAB 2 Refills Prov:DEE BOLANOS MD 03/06/16 Famotidine (PEPCID) 20 Mg Tablet, 20 MG PO DAILY for 30 Days, TAB Prov:DEE BOLANOS MD 03/06/16 Reported Medications Promethazine Hcl (PROMETHAZINE HCL) 25 Mg Tablet, 12.5 MG PO Q8H PRN for daily, TAB 08/23/17 Metoprolol Succinate (METOPROLOL SUCCINATE) 50 Mg Tab.er.24h, 50 MG PO DAILY, MG 08/23/17 Sucralfate (SUCRALFATE) 1 Gm Tablet, 1 GM PO BID, TAB 08/23/17 Bisacodyl (BISACODYL) 5 Mg Tablet.dr, 10 MG PO PRN, TAB 08/23/17 Ondansetron (ZOFRAN ODT) 4 Mg Tab.rapdis, 4 MG PO DAILY, TAB 02/20/17 Aspirin (ASPIRIN CHEW) 81 Mg Chew, 81 MG PO DAILY, #30 TAB 02/20/17 Methadone Hcl (Methadose) 40 Mg Tablet.elba, 50 MG PO QD, 0 Refills 06/08/11 Medications in the ED Aspirin 81 mg PRN ONCE PO ; Start 02/15/20 at 21:15; Stop 02/15/20 at 21:16 RON SPENCE MD February 15, 2020 21:37
[2020-02-15 21:54] LABS: ALBUMIN 3.3 g/dL (3.5-5.0); ALBUMIN/GLOBULIN RATIO 0.9 (0.8-2.0); ANION GAP 15.2 mmol/L (8-16); CALCIUM 10.6 mg/dL (8.4-10.2); CREATININE, SERUM 1.31 mg/dL (0.72-1.25); POTASSIUM 4.2 mmol/L (3.5-5.1)
[2020-02-15] MEDS ORDERED: SODIUM CHLORIDE 0.9% 250ML 250 ML IV ONE (22:00)
[2020-02-15 22:01] LABS: CREATINE KINASE MB 2.2 ng/mL (0-5.0)
--- NOTE | 2020-02-15 22:26 | Diagnostic Imaging Report ---
EXAMINATION: CHEST SINGLE (PORTABLE) INDICATION: ^left lateral chest pain ^Y COMPARISON: 12/19/2019 FINDINGS: AP view TUBES and LINES: None. LUNGS: Bibasilar airspace opacities, right greater than left, are unchanged when compared to the previous study and again likely represents scarring. PLEURA: No pleural effusion or pneumothorax. HEART AND MEDIASTINUM: Fullness of the upper mediastinum and right heart border likely secondary to technique. BONES AND SOFT TISSUES: No acute osseous lesion. Soft tissues are unremarkable. UPPER ABDOMEN: No free air under the diaphragm. IMPRESSION: Fullness of the upper mediastinum is likely secondary to technique. Nonurgent repeat examination with dedicated PA and lateral radiographs is recommended when clinically feasible. Unchanged bibasilar opacities, right greater than left, again likely represents scarring. Signed by: Tommy Santacruz MD on 02/15/2020 10:22 PM
[2020-02-15] MEDS ORDERED: LIDOCAINE 4% PATCH TP ONE ×3 (22:30→22:36)
--- OUTSIDE RECORDS SUMMARY | 2020-02-15 22:40 | XMS REPORT ---
Author Author [facility] t Organization [facility] Address [address] [place] [address] Phone Unavailable Care Team Providers Care Cnc Programmer Name Role Phone NONSTAFF PCP Unavailable Susana SPENCE Unavailable ANY BUTLER Unavailable Payers Payer Name Policy Type Policy Number Effective Date Expiration Date [employer] [facility] Medicare Complete [id number] 2019 00:00:00 [facility] [employer] Medicare Replacement [id number] 2015 00:00:00 [facility] [employer] Medicare Replacement [id number] 2015 00:00:00 [facility] [employer] Medicare Replacement [id number] 2015 00:00:00 [facility] Problems Condition Name Condition Details Condition Category Status Onset Date Resolution Date Last Treatment Date Treating Clinician Comments Source Cellulitis and abscess of lower extremity Cellulitis and abscess of leg Problem Active 2016-02-23 00:00:00 [facility] Dehydration Dehydration Problem Active [facility] Diarrhea Diarrhea Problem Active [facility] CHEST PAIN, UNSPECIFIED Problem Active [facility] HYPOKALEMIA Problem Active [facility] PAROXYSMAL ATRIAL FIBRILLATION Problem Active [facility] Allergies, Adverse Reactions, Alerts Allergy Name Allergy Type Status Severity Reaction(s) Onset Date Inacti ve Date Treating Clinician Comments Source No Known Allergies DA Active U 2020-02-03 00:00:00 [facility] No Known Allergies DA Active U 2016-02-21 00:00:00 [facility] Medications Ordered Medication Name Filled Medication Name Start Date Stop Da te Current Medication? Ordering Clinician Indication Dosage Frequency Signature (SIG) Comments Components Source Apixaban (Eliquis) 5 Mg Tablet Apixaban (Eliquis) 5 Mg Table t 2019-12-22 00:00:00 Yes Darius [facility] 5 Twice A Day [facility] Ascorbic Acid 500 Mg Tablet Ascorbic Acid 500 Mg Tablet 2019-12-22 00:00:00 Yes Darius [facility] 500 Twice A Day [facility] Nystatin/Triamcinolone 15 Gm Cr Nystatin/Triamcinolone 15 Gm Cr 2019-12-22 00:00:00 Yes Darius Ulola [facility] 1 Twice A Day [facility] Phenazopyridine Hcl (Pyridium) 100 Mg Tablet Phenazopy ridine Hcl (Pyridium) 100 Mg Tablet 2019-12-22 00:00:00 Yes Darius [facility]ll[facility] 100 Twi ce A Day [facility] Tamsulosin Hcl (Flomax*) 0.4 Mg Cap Tamsulosin Hcl (Flomax*) 0.4 Mg Cap 2019-12-22 00:00:00 Yes Darius Ulloa [facility] .4 Daily At 5:30PM [facility] Venlafaxine Hcl (Effexor Xr 37.5MG Capcr*) 37.5 Mg Cap cr Venlafaxine Hcl (Effexor Xr 37.5MG Capcr*) 37.5 Mg Capcr 2019-12-22 00:00:00 Yes Darius Ulloa [facility] 37.5 Daily [facility] Levofloxacin (Levaquin) 500 Mg Tablet, 500 Mg Oral Lev ofloxacin (Levaquin) 500 Mg Tablet, 500 Mg Oral 2016-09-11 00:00:00 2017-02-20 00:00:00 No Nicole Angel Md 500 Daily [facility] Metronidazole (Flagyl) 500 Mg Tablet, 250 Mg Oral Metr onidazole (Flagyl) 500 Mg Tablet, 250 Mg Oral 2016-09-11 00:00:00 2017-02-20 00:00:00 No Mando jama Md 250 Every 8 Hours [facility] Famotidine (Pepcid) 20 Mg Tablet Famotidine (Pepcid) 20 Mg [facility] 2016-03-06 00:00:00 Yes Mando Angel Md 20 Daily [facility] Metformin Hcl 500 Mg Tablet Metformin Hcl 500 Mg Tablet 2016-03-06 00:00:00 Yes Mando Angel Md 500 Twice Daily With Meals [facility] Simvastatin (Zocor) 20 Mg Tablet Simvastatin (Zocor) 20 Mg [facility] 2016-03-06 00:00:00 Yes Mando Angel Md 20 Bedtime [facility] Clindamycin Hcl 150 Mg Capsule, 300 Mg Oral Clindamyci n Hcl 150 Mg Capsule, 300 Mg Oral 2016-03-06 00:00:00 2016-09-11 00:00:00 No Mando Angel Md [address] [facility] Aspirin (Aspirin Chew) 81 Mg Chew Aspirin (Aspirin Chew) 81 Mg Chew Yes 81 Daily [facility] Bisacodyl 5 Mg Tablet.dr Orozco 5 Mg Tablet.dr Yes 10 As Needed [facility] Methadone Hcl (Methadose) 40 Mg Tablet.elba Methadone H cl (Methadose) 40 Mg Tablet.elba Yes 50 Daily [facility] Metoprolol Succinate 50 Mg Tab.er.24h Metoprolol Succinate 50 Mg Ta b.er.24h Yes 50 Daily [facility] Ondansetron (Zofran Odt) 4 Mg Tab.rapdis Ondansetron ( Zofran Odt) 4 Mg Tab.rapdis Yes 4 Daily [facility] Promethazine Hcl 25 Mg Tablet Promethazine Hcl 25 Mg Tablet Yes 12.5 Every 8 Hours as needed for Daily [facility] Sucralfate 1 Gm Tablet Sucralfate 1 Gm Tablet Yes 1 Twice A Day [facility] Alprazolam 0.25 Mg Tab.rapdis, 1 Tab Oral Alprazolam 0 .25 Mg Tab.rapdis, 1 Tab Oral 2019-12-22 00:00:00 No 1 Every 12 Hours [facility] Albuterol Sulfate (Proair Hfa Inhaler*) 8.5 Gm Inh, Al buterol Sulfate (Proair Hfa Inhaler*) 8.5 Gm Inh, 2017-02-20 00:00:00 No [facility] Prednisone Micronized (Prednisone) 5 Gm Powder, 20 Mg Oral Prednisone Micronized (Prednisone) 5 Gm Powder, 20 Mg Oral 2016-03-13 00:00:00 No 20 Daily [facility] Cephalexin 500 Mg Capsule, 500 Mg Oral Cephalexin 500 Mg Capsule , 500 Mg Oral 2016-03-06 00:00:00 No 500 Twice A Day [facility] Procedures Procedure Date / Time Performed Performing Clinician [facility] e X-ray of chest, single view 2019-12-19 00:00:00 ANY LOZA [facility] Encounters Start Date/Time End Date/Time Encounter Type Admission Type Attendi [facility] Care Department Encounter ID Source 2019-12-24 17:33:00 2019-12-24 18:24:00 Departed Emergency Room [facility] [id number] [facility] 2019-12-21 10:10:00 2019-12-22 20:38:00 Discharged Inpatient 1 ANY BUTLER [facility] [id number] [facility] 2019-12-04 14:40:00 2019-12-04 15:35:00 Departed Emergency Room [facility] [id number] [facility] 2019-09-18 19:12:00 2019-09-18 20:55:00 Departed Emergency Room [facility] [id number] [facility] 2018-01-19 03:37:00 2018-01-19 05:03:00 Departed Emergency Room [facility] [id number] [facility] 2017-08-23 09:31:00 2017-08-23 12:31:00 Departed Emergency Room [facility] [id number] [facility] 2017-07-29 16:14:00 2017-07-29 20:27:00 Departed Emergency Room [facility] [id number] [facility] 2017-07-11 18:51:00 2017-07-11 22:46:00 Departed Emergency Room [facility] [id number] [facility] 2017-05-25 21:09:00 2017-05-25 22:48:00 Departed Emergency Room [facility] [id number] [facility] Results Test Description Test Time Test Comments Results Result Comments Source CHEST SINGLE (PORTABLE) 2020-02-15 22:18:00 [place] [address] Patient Name: SAMMI MEANS MR #: [id number] : 1950 Age/Sex: 69/M Req #: [id number] Adm Physician: Ordered by: RON SPENCE MD Report #: [id number] Location: ER Room/Bed: Procedure: [id number] DX/CHEST SINGLE (PORTABLE) Exam Date: Exam Time: REPORT STATUS: Signed EXAMINATION: CHEST SINGLE (PORTABLE) INDICATION: left lateral chest pain Y COMPARISON: 12/19/2019 FINDINGS: AP view TUBES and LINES: None. LUNGS: Bibasilar airspace opacities, right greater than left, are unchanged when compared to the previous study and again likely represents scarring. PLEURA: No pleural effusion or pneumothorax. HEART AND MEDIASTINUM: Fullness of the upper mediastinum and right heart border likely secondary to technique. BONES AND SOFT TISSUES: No acute osseous lesion. Soft tissues are unremarkable. UPPER ABDOMEN: No free air under the diaphragm. IMPRESSION: Fullness of the upper mediastinum is likely secondary to technique. Nonurgent repeat examination with dedicated PA and lateral radiographs is recommended when clinically feasible. Unchanged bibasilar opacities, right greater than left, again likely represents scarring. Signed by: Nataliia Zarco MD on 02/15/2020 10:22 PM Dictated By: NATALIIA ZARCO MD 21 Transcribed By: IVONE on 02/15/202221 COPY TO: RON SPENCE MD STOMACH 2020-02-05 15:50:00 RUN DATE: 02/05/20 [place] [facility] PAGE 1 RUN TIME: 1551 Specimen Inquiry RUN USER: INTERFACE PATIENT: SAMMI MEANS [facility] #: [id number] LOC: BALAJI #: [id number] AGE/SX: 69/M ROOM: [facility] RE02/03/20REG DR: Diana Knapp MD : 54 BED: A DIS: 02/05/20 STATUS: DIS IN TLOC: SPEC #: [id number] RECD: 02/04/20 STATUS: AKASH JOVANA #: [id number] PATRICIA: 02/04/20- SUBM DR: Felix Holt MD ENTERED: 02/04/20-1306 SP TYPE: STOMACH OTHR DR: Ganesh Goldstein MD, III, Frank Joseph MD Syed, Ghyasuddin MDORDERED: GROSS COPIES TO: Ganesh Goldstein MD [address] [place] [address] Felix Holt MD [address] [place] [address] Ma[place] Sanchez [place], [place] [address] [facility] [address] [place] [address] Traci Sebastian MD [address] [place], [place] [id number] PROCEDURES: GROSS (02/05/20-1353) TISSUES: GASTR[facility] - BX CLINICAL HISTORY COLLECTION DATE: 02/04/20 ABDOMINAL PAIN FINAL DIAGNOSIS Gastric ulcer, biopsy: FOVEOLAR HYPERPLASIA AND PATCHY MILD CHRONIC INFLAMMATION, GASTRIC MUCOSA NEGATIVE FOR INTESTINAL METAPLASIA NEGATIVE FOR MALIGNANCY CONTINUED ON NEXT PAGE RUN DATE: 02/05/20 [place] [facility] PAGE 2 RUN TIME: 1551 Specimen Inquiry RUN USER: INTERFACE SPEC #: [id number] PATIENT: SAMMI MEANS #[id number] (Continued) FINAL DIAGNOSIS (Continued) DMW/ D [id number] MACROSCOPIC The specimen is received in formalin, labeled with the patient's name, identified as "gastric ulcer", and consists of pink biopsy tissue measuring 0.25 cm, submitted for histologic evaluation. GROSS PERFORMED AT [facility] [address] [place] [address] (P) MICROSCOPIC All of the stains, including any controls performed, stain appropriately. MICROSCOPIC PERFORMED AT [facility] [address] [place] [address] (p)[phone] PERFORMING SITE Diagnosis performed at: [facility] [address] [facility] [place] [address] Signed SIGNATURE ON FILE Will is,Michelle Valdez MD 02/05/20 1550 END OF REPORT GLUBED 2020-02-05 12:34:00 Test Item GLUBED (test code = GLUBED) 108 mg/dL 74-106 H Performed by certified service station console operator at [facility] [id number] 08:22:00* Test Item Value Reference Range Interpretation Comments GLUBED (test code = GLUBED) 110 mg/dL 74-106 H Performed by certified service station console operator at [facility] BASIC METABOLIC [id number] 07:12:00* Test Item Value Reference Range Interpretation Comments SODIUM (test code = NA) 141 mmol/L 136-145 N POTASSIUM (test code = K) 4.3 mmol/L 3.5-5.1 N CHLORIDE (test code = CL) 108.0 mmol/L 98-107 H CARBON DIOXIDE (test code = CO2) 28.0 mmol/L 21-32 N ANION GAP (test code = GAP) 9.3 10-20 L GLUCOSE (test code = GLU) 99 mg/dL 74-106 N BLOOD UREA NITROGEN (test code = BUN) 19 mg/dL 7-18 H GLOMERULAR FILTRATION RATE (test code = GFR) 60 mL/min >=60 Estimated GFR by using Modified MDRD formula.Chronic kidney disease is defined as either kidney damageor GFR <60 mL/min/1.73 m2 for >3 months. CREATININE (test code = CREAT) 1.20 mg/dL 0.7-1.3 N BUN/CREATININE RATIO (test code = BUN/CREA) 15.8 10-20 N CALCIUM (test code = CA) 10.2 mg/dL 8.5-10.1 H BASIC METABOLIC [id number] 07:02:00* Test Item Value Reference Range Interpretation Comments SODIUM (test code = NA) 141 mmol/L 136-145 N POTASSIUM (test code = K) 4.3 mmol/L 3.5-5.1 N CHLORIDE (test code = CL) 108.0 mmol/L 98-107 H CARBON DIOXIDE (test code = CO2) mmol/L 21-32 ANION GAP (test code = GAP) 10-20 GLUCOSE (test code = GLU) mg/dL 74-106 BLOOD UREA NITROGEN (test code = BUN) mg/dL 7-18 GLOMERULAR FILTRATION RATE (test code = GFR) mL/min >=60 CREATININE (test code = CREAT) mg/dL 0.7-1.3 BUN/CREATININE RATIO (test code = BUN/CREA) 10-20 CALCIUM (test code = CA) mg/dL 8.5-10.1 CBC W/AUTO [id number] 06:49:00* Test Item Value Reference Range Interpretation Comments WHITE BLOOD CELL (test code = WBC) 7.9 K/mm3 4.5-12.5 N RED BLOOD CELL (test code = RBC) 3.32 mill/mm3 4.0-5.8 L HEMOGLOBIN (test code = HGB) 7.4 gram/dL 13.0-17.5 L HEMATOCRIT (test code = HCT) 25.3 % 42.0-52.0 L MEAN CELL VOLUME (test code = MCV) 76.2 fL 80-98 L MEAN CELL HGB (test code = MCH) 22.3 picogram 27.0-33.0 L MEAN CELL HGB CONCETRATION (test code = MCHC) 29.2 gram/dL 33.0-36. 0 L RED CELL DISTRIBUTION WIDTH (test code = RDW) 18.5 % 11.6-16. 2 H RED CELL DISTRIBUTION WIDTH SD (test code = RDW-SD) 50.7 fL 37 .0-51.0 N PLATELET COUNT (test code = PLT) 286 K/mm3 150-450 N MEAN PLATELET VOLUME (test code = MPV) 10.0 fL 6.7-11.0 N NEUTROPHIL % (test code = NT%) 53.7 % 39.0-69.0 N IMMATURE GRANULOCYTE % (test code = IG%) 0.1 % 0.0-5.0 N LYMPHOCYTE % (test code = LY%) 31.7 % 25.0-55.0 N MONOCYTE % (test code = MO%) 7.2 % 0.0-10.0 N EOSINOPHIL % (test code = EO%) 6.9 % 0.0-5.0 H BASOPHIL % (test code = BA%) 0.4 % 0.0-1.0 N NUCLEATED RBC % (test code = NRBC%) 0.0 % 0-0 N NEUTROPHIL # (test code = NT#) 4.26 K/mm3 1.8-7.7 N IMMATURE GRANULOCYTE # (test code = IG#) 0.01 x10 3/uL 0-0.03 N LYMPHOCYTE # (test code = LY#) 2.51 K/mm3 1.0-5.0 N MONOCYTE # (test code = MO#) 0.57 K/mm3 0-0.8 N EOSINOPHIL # (test code = EO#) 0.55 K/mm3 0.0-0.5 H BASOPHIL # (test code = BA#) 0.03 K/mm3 0.0-0.2 N NUCLEATED RBC # (test code = NRBC#) 0.00 K/mm3 0.0-0.1 N MANUAL DIFF REQUIRED (test code = MDIFF) NO [id number] 22:25:00* Test Item Value Reference Range Interpretation Comments GLUBED (test code = GLUBED) 111 mg/dL 74-106 H Performed by certified service station console operator at [facility] [id number] 16:38:00* Test Item Value Reference Range Interpretation Comments GLUBED (test code = GLUBED) 93 mg/dL 74-106 N Performed by certified service station console operator at [facility] [id number] 08:37:00* Test Item Value Reference Range Interpretation Comments GLUBED (test code = GLUBED) 95 mg/dL 74-106 N Performed by certified service station console operator at [facility] Coronavirus 2019 nCoV [id number] 05:29:00* Test Item Value Reference Range Interpretation Comments Coronavirus 2019 nCoV Bedside (test code = [id number]) Negative Emergent procedure? YESCBC W/AUTO [id number] 03:26:00* Test Item Value Reference Range Interpretation Comments WHITE BLOOD CELL (test code = WBC) 8.8 K/mm3 4.5-12.5 N RED BLOOD CELL (test code = RBC) 2.83 mill/mm3 4.0-5.8 L HEMOGLOBIN (test code = HGB) 6.1 gram/dL 13.0-17.5 L HEMATOCRIT (test code = HCT) 21.4 % 42.0-52.0 LL Results called to [id number] by CARLOS 02/04/20 0235Critical results verified and read back by Nurse? Y MEAN CELL VOLUME (test code = MCV) 75.6 fL 80-98 L MEAN CELL HGB (test code = MCH) 21.6 picogram 27.0-33.0 L MEAN CELL HGB CONCETRATION (test code = MCHC) 28.5 gram/dL 33.0-36. 0 L RED CELL DISTRIBUTION WIDTH (test code = RDW) 18.9 % 11.6-16. 2 H RED CELL DISTRIBUTION WIDTH SD (test code = RDW-SD) 52.1 fL 37 .0-51.0 H PLATELET COUNT (test code = PLT) 300 K/mm3 150-450 N MEAN PLATELET VOLUME (test code = MPV) 10.3 fL 6.7-11.0 N NEUTROPHIL % (test code = NT%) 54.6 % 39.0-69.0 N IMMATURE GRANULOCYTE % (test code = IG%) 0.2 % 0.0-5.0 N LYMPHOCYTE % (test code = LY%) 32.4 % 25.0-55.0 N MONOCYTE % (test code = MO%) 6.5 % 0.0-10.0 N EOSINOPHIL % (test code = EO%) 5.7 % 0.0-5.0 H BASOPHIL % (test code = BA%) 0.6 % 0.0-1.0 N NUCLEATED RBC % (test code = NRBC%) 0.0 % 0-0 N NEUTROPHIL # (test code = NT#) 4.83 K/mm3 1.8-7.7 N IMMATURE GRANULOCYTE # (test code = IG#) 0.02 x10 3/uL 0-0.03 N LYMPHOCYTE # (test code = LY#) 2.86 K/mm3 1.0-5.0 N MONOCYTE # (test code = MO#) 0.57 K/mm3 0-0.8 N EOSINOPHIL # (test code = EO#) 0.50 K/mm3 0.0-0.5 N BASOPHIL # (test code = BA#) 0.05 K/mm3 0.0-0.2 N NUCLEATED RBC # (test code = NRBC#) 0.00 K/mm3 0.0-0.1 N MANUAL DIFF REQUIRED (test code = MDIFF) NO, ONLY SCAN NEEDED DIFFERENTIAL [id number] 03:26:00* Test Item Value Reference Range Interpretation Comments STAIN ACCEPTABILITY (test code = STN ACCEPTABLE) STAIN ACCEPTABLE POIKILOCYTOSIS (test code = POIK) 2+ ANISOCYTOSIS (test code = ANISO) 1+ EAMON CELLS (test code = EAMON) 1+ NONE ACANTHOCYTES (test code = ACAN) 1+ NONE OVALOCYTES (test code = OVAL) 1+ SICKLE CELLS (test code = SICKL) 1+ MORPHOLOGY COMMENT (test code = MOC) TEST NOT PERFORMED PLATELET ESTIMATE (test code = PLTEST) ADEQUATE PLATELET MORPHOLOGY (test code = PLTMORPH) NORMAL BASIC METABOLIC [id number] 02:53:00* Test Item Value Reference Range Interpretation Comments SODIUM (test code = NA) 142 mmol/L 136-145 N POTASSIUM (test code = K) 4.4 mmol/L 3.5-5.1 N CHLORIDE (test code = CL) 112.0 mmol/L 98-107 H CARBON DIOXIDE (test code = CO2) 25.0 mmol/L 21-32 N ANION GAP (test code = GAP) 9.4 10-20 L GLUCOSE (test code = GLU) 97 mg/dL 74-106 N BLOOD UREA NITROGEN (test code = BUN) 19 mg/dL 7-18 H GLOMERULAR FILTRATION RATE (test code = GFR) 60 mL/min >=60 Estimated GFR by using Modified MDRD formula.Chronic kidney disease is defined as either kidney damageor GFR <60 mL/min/1.73 m2 for >3 months. CREATININE (test code = CREAT) 1.20 mg/dL 0.7-1.3 N BUN/CREATININE RATIO (test code = BUN/CREA) 15.8 10-20 N CALCIUM (test code = CA) 9.6 mg/dL 8.5-10.1 N BASIC METABOLIC [id number] 02:45:00* Test Item Value Reference Range Interpretation Comments SODIUM (test code = NA) 142 mmol/L 136-145 N POTASSIUM (test code = K) 4.4 mmol/L 3.5-5.1 N CHLORIDE (test code = CL) 112.0 mmol/L 98-107 H CARBON DIOXIDE (test code = CO2) mmol/L 21-32 ANION GAP (test code = GAP) 10-20 GLUCOSE (test code = GLU) mg/dL 74-106 BLOOD UREA NITROGEN (test code = BUN) mg/dL 7-18 GLOMERULAR FILTRATION RATE (test code = GFR) mL/min >=60 CREATININE (test code = CREAT) mg/dL 0.7-1.3 BUN/CREATININE RATIO (test code = BUN/CREA) 10-20 CALCIUM (test code = CA) mg/dL 8.5-10.1 CBC W/AUTO [id number] 02:42:00* Test Item Value Reference Range Interpretation Comments WHITE BLOOD CELL (test code = WBC) 8.8 K/mm3 4.5-12.5 N RED BLOOD CELL (test code = RBC) 2.83 mill/mm3 4.0-5.8 L HEMOGLOBIN (test code = HGB) 6.1 gram/dL 13.0-17.5 L HEMATOCRIT (test code = HCT) 21.4 % 42.0-52.0 LL Results called to [id number] by [email or web address] 02/04/20 0235Critical results verified and read back by Nurse? Y MEAN CELL VOLUME (test code = MCV) 75.6 fL 80-98 L MEAN CELL HGB (test code = MCH) 21.6 picogram 27.0-33.0 L MEAN CELL HGB CONCETRATION (test code = MCHC) 28.5 gram/dL 33.0-36. 0 L RED CELL DISTRIBUTION WIDTH (test code = RDW) 18.9 % 11.6-16. 2 H RED CELL DISTRIBUTION WIDTH SD (test code = RDW-SD) 52.1 fL 37 .0-51.0 H PLATELET COUNT (test code = PLT) 300 K/mm3 150-450 N MEAN PLATELET VOLUME (test code = MPV) 10.3 fL 6.7-11.0 N NEUTROPHIL % (test code = NT%) 54.6 % 39.0-69.0 N IMMATURE GRANULOCYTE % (test code = IG%) 0.2 % 0.0-5.0 N LYMPHOCYTE % (test code = LY%) 32.4 % 25.0-55.0 N MONOCYTE % (test code = MO%) 6.5 % 0.0-10.0 N EOSINOPHIL % (test code = EO%) 5.7 % 0.0-5.0 H BASOPHIL % (test code = BA%) 0.6 % 0.0-1.0 N NUCLEATED RBC % (test code = NRBC%) 0.0 % 0-0 N NEUTROPHIL # (test code = NT#) 4.83 K/mm3 1.8-7.7 N IMMATURE GRANULOCYTE # (test code = IG#) 0.02 x10 3/uL 0-0.03 N LYMPHOCYTE # (test code = LY#) 2.86 K/mm3 1.0-5.0 N MONOCYTE # (test code = MO#) 0.57 K/mm3 0-0.8 N EOSINOPHIL # (test code = EO#) 0.50 K/mm3 0.0-0.5 N BASOPHIL # (test code = BA#) 0.05 K/mm3 0.0-0.2 N NUCLEATED RBC # (test code = NRBC#) 0.00 K/mm3 0.0-0.1 N MANUAL DIFF REQUIRED (test code = MDIFF) NO, ONLY SCAN NEEDED DIFFERENTIAL [id number] 02:42:00* Test Item Value Reference Range Interpretation Comments STAIN ACCEPTABILITY (test code = STN ACCEPTABLE) CABOT RINGS (test code = CAB) MORPHOLOGY COMMENT (test code = MOC) PLATELET ESTIMATE (test code = PLTEST) PLATELET MORPHOLOGY (test code = PLTMORPH) CBC W/AUTO [id number] 02:42:00* Test Item Value Reference Range Interpretation Comments WHITE BLOOD CELL (test code = WBC) 8.8 K/mm3 4.5-12.5 N RED BLOOD CELL (test code = RBC) 2.83 mill/mm3 4.0-5.8 L HEMOGLOBIN (test code = HGB) 6.1 gram/dL 13.0-17.5 L HEMATOCRIT (test code = HCT) 21.4 % 42.0-52.0 LL Results called to [id number] by CARLOS 02/04/20 0235Critical results verified and read back by Nurse? Y MEAN CELL VOLUME (test code = MCV) 75.6 fL 80-98 L MEAN CELL HGB (test code = MCH) 21.6 picogram 27.0-33.0 L MEAN CELL HGB CONCETRATION (test code = MCHC) 28.5 gram/dL 33.0-36. 0 L RED CELL DISTRIBUTION WIDTH (test code = RDW) 18.9 % 11.6-16. 2 H RED CELL DISTRIBUTION WIDTH SD (test code = RDW-SD) 52.1 fL 37 .0-51.0 H PLATELET COUNT (test code = PLT) 300 K/mm3 150-450 N MEAN PLATELET VOLUME (test code = MPV) 10.3 fL 6.7-11.0 N NEUTROPHIL % (test code = NT%) 54.6 % 39.0-69.0 N IMMATURE GRANULOCYTE % (test code = IG%) 0.2 % 0.0-5.0 N LYMPHOCYTE % (test code = LY%) 32.4 % 25.0-55.0 N MONOCYTE % (test code = MO%) 6.5 % 0.0-10.0 N EOSINOPHIL % (test code = EO%) 5.7 % 0.0-5.0 H BASOPHIL % (test code = BA%) 0.6 % 0.0-1.0 N NUCLEATED RBC % (test code = NRBC%) 0.0 % 0-0 N NEUTROPHIL # (test code = NT#) 4.83 K/mm3 1.8-7.7 N IMMATURE GRANULOCYTE # (test code = IG#) 0.02 x10 3/uL 0-0.03 N LYMPHOCYTE # (test code = LY#) 2.86 K/mm3 1.0-5.0 N MONOCYTE # (test code = MO#) 0.57 K/mm3 0-0.8 N EOSINOPHIL # (test code = EO#) 0.50 K/mm3 0.0-0.5 N BASOPHIL # (test code = BA#) 0.05 K/mm3 0.0-0.2 N NUCLEATED RBC # (test code = NRBC#) 0.00 K/mm3 0.0-0.1 N MANUAL DIFF REQUIRED (test code = MDIFF) NO, ONLY SCAN NEEDED DIFFERENTIAL [id number] 02:42:00* Test Item Value Reference Range Interpretation Comments STAIN ACCEPTABILITY (test code = STN ACCEPTABLE) MORPHOLOGY COMMENT (test code = MOC) PLATELET ESTIMATE (test code = PLTEST) PLATELET MORPHOLOGY (test code = PLTMORPH) CBC W/AUTO [id number] 02:41:00* Test Item Value Reference Range Interpretation Comments WHITE BLOOD CELL (test code = WBC) 8.8 K/mm3 4.5-12.5 N RED BLOOD CELL (test code = RBC) 2.83 mill/mm3 4.0-5.8 L HEMOGLOBIN (test code = HGB) 6.1 gram/dL 13.0-17.5 L HEMATOCRIT (test code = HCT) 21.4 % 42.0-52.0 LL Results called to [id number] by [email or web address] 02/04/20 [id number] results verified and read back by Nurse? Y MEAN CELL VOLUME (test code = MCV) 75.6 fL 80-98 L MEAN CELL HGB (test code = MCH) 21.6 picogram 27.0-33.0 L MEAN CELL HGB CONCETRATION (test code = MCHC) 28.5 gram/dL 33.0-36. 0 L RED CELL DISTRIBUTION WIDTH (test code = RDW) 18.9 % 11.6-16. 2 H RED CELL DISTRIBUTION WIDTH SD (test code = RDW-SD) 52.1 fL 37 .0-51.0 H PLATELET COUNT (test code = PLT) 300 K/mm3 150-450 N MEAN PLATELET VOLUME (test code = MPV) 10.3 fL 6.7-11.0 N NEUTROPHIL % (test code = NT%) 54.6 % 39.0-69.0 N IMMATURE GRANULOCYTE % (test code = IG%) 0.2 % 0.0-5.0 N LYMPHOCYTE % (test code = LY%) 32.4 % 25.0-55.0 N MONOCYTE % (test code = MO%) 6.5 % 0.0-10.0 N EOSINOPHIL % (test code = EO%) 5.7 % 0.0-5.0 H BASOPHIL % (test code = BA%) 0.6 % 0.0-1.0 N NUCLEATED RBC % (test code = NRBC%) 0.0 % 0-0 N NEUTROPHIL # (test code = NT#) 4.83 K/mm3 1.8-7.7 N IMMATURE GRANULOCYTE # (test code = IG#) 0.02 x10 3/uL 0-0.03 N LYMPHOCYTE # (test code = LY#) 2.86 K/mm3 1.0-5.0 N MONOCYTE # (test code = MO#) 0.57 K/mm3 0-0.8 N EOSINOPHIL # (test code = EO#) 0.50 K/mm3 0.0-0.5 N BASOPHIL # (test code = BA#) 0.05 K/mm3 0.0-0.2 N NUCLEATED RBC # (test code = NRBC#) 0.00 K/mm3 0.0-0.1 N MANUAL DIFF REQUIRED (test code = MDIFF) NO, ONLY SCAN NEEDED DIFFERENTIAL [id number] 02:41:00* Test Item Value Reference Range Interpretation Comments STAIN ACCEPTABILITY (test code = STN ACCEPTABLE) CABOT RINGS (test code = CAB) MORPHOLOGY COMMENT (test code = MOC) PLATELET ESTIMATE (test code = PLTEST) PLATELET MORPHOLOGY (test code = PLTMORPH) CBC W/AUTO [id number] 02:41:00* Test Item Value Reference Range Interpretation Comments WHITE BLOOD CELL (test code = WBC) 8.8 K/mm3 4.5-12.5 N RED BLOOD CELL (test code = RBC) 2.83 mill/mm3 4.0-5.8 L HEMOGLOBIN (test code = HGB) 6.1 gram/dL 13.0-17.5 L HEMATOCRIT (test code = HCT) 21.4 % 42.0-52.0 LL Results called to [id number] by CARLOS 02/04/20 0235Critical results verified and read back by Nurse? Y MEAN CELL VOLUME (test code = MCV) 75.6 fL 80-98 L MEAN CELL HGB (test code = MCH) 21.6 picogram 27.0-33.0 L MEAN CELL HGB CONCETRATION (test code = MCHC) 28.5 gram/dL 33.0-36. 0 L RED CELL DISTRIBUTION WIDTH (test code = RDW) 18.9 % 11.6-16. 2 H RED CELL DISTRIBUTION WIDTH SD (test code = RDW-SD) 52.1 fL 37 .0-51.0 H PLATELET COUNT (test code = PLT) 300 K/mm3 150-450 N MEAN PLATELET VOLUME (test code = MPV) 10.3 fL 6.7-11.0 N NEUTROPHIL % (test code = NT%) 54.6 % 39.0-69.0 N IMMATURE GRANULOCYTE % (test code = IG%) 0.2 % 0.0-5.0 N LYMPHOCYTE % (test code = LY%) 32.4 % 25.0-55.0 N MONOCYTE % (test code = MO%) 6.5 % 0.0-10.0 N EOSINOPHIL % (test code = EO%) 5.7 % 0.0-5.0 H BASOPHIL % (test code = BA%) 0.6 % 0.0-1.0 N NUCLEATED RBC % (test code = NRBC%) 0.0 % 0-0 N NEUTROPHIL # (test code = NT#) 4.83 K/mm3 1.8-7.7 N IMMATURE GRANULOCYTE # (test code = IG#) 0.02 x10 3/uL 0-0.03 N LYMPHOCYTE # (test code = LY#) 2.86 K/mm3 1.0-5.0 N MONOCYTE # (test code = MO#) 0.57 K/mm3 0-0.8 N EOSINOPHIL # (test code = EO#) 0.50 K/mm3 0.0-0.5 N BASOPHIL # (test code = BA#) 0.05 K/mm3 0.0-0.2 N NUCLEATED RBC # (test code = NRBC#) 0.00 K/mm3 0.0-0.1 N MANUAL DIFF REQUIRED (test code = MDIFF) NO, ONLY SCAN NEEDED DIFFERENTIAL [id number] 02:41:00* Test Item Value Reference Range Interpretation Comments STAIN ACCEPTABILITY (test code = STN ACCEPTABLE) CABOT RINGS (test code = CAB) MORPHOLOGY COMMENT (test code = MOC) PLATELET ESTIMATE (test code = PLTEST) PLATELET MORPHOLOGY (test code = PLTMORPH) [id number] 20:15:00* Test Item Value Reference Range Interpretation Comments GLUBED (test code = GLUBED) 139 mg/dL 74-106 H Performed by certified service station console operator at [facility] [id number] 16:34:00* Test Item Value Reference Range Interpretation Comments GLUBED (test code = GLUBED) 114 mg/dL 74-106 H Performed by certified service station console operator at [facility] - CT ABD PELVIS W/O [id number] 07:35:00 Name: SAMMI MEANS [facility] : 1950 Age/S: 69 / M [address] [facility] Unit #: [id number] Loc: [place] [address] Phys: Gatito Ortega MD Acct: [id number] Dis Date: Status: REG ER PHONE #: [phone] Exam Date: 02/03/2020 07 FAX #: [phone] Reason: LUQ abdominal pain EXAMS: CPT CODE: [id number] CT ABD PELVIS W/O CONT 74149 HISTORY: LUQ abdominal pain TECHNIQUE: [address] images were obtained through the abdomen and pelvis without contrast. Sagittal and coronal reformatted images were generated. Automated exposure reduction (Auto mA/Smart mA) was utilized in compliance with ACR Image [employer] with DLP of 474 mGy-cm. COMPARISON: 08/14/14 FINDINGS: Statements: Lack of intravenous contrast limits evaluation of abdominopelvic organs and vasculature. Lack of oral contrast limits evaluation of bowel. THORACIC: Stable subpleural 5 mm right lower lobe nodule. Mild bibasilar subsegmental atelectasis. Cardiomegaly. Coronary artery stacia cification. HEPATOBILIARY: Hepatomegaly. Cholecystectomy. No biliary dilat ion. PANCREAS: Normal. SPLEEN: Normal. ADRENALS: Normal. GASTROINTESTINAL: Limited evaluation without oral contrast. Stomach and small bowel are unremarkable. Appendix is normal. Sigmoid diverticulosis. GENITOURINARY: Bilateral renal cortical thinning. Exophytic 2.8 cm s uperior right renal cyst. Left superior pole 1.6 cm hyperdense cyst. No ur inary calculus or hydronephrosis. Urinary bladder is unremarkable. Seminal vesicles and prostate gland are unremarkable. VASCULAR: Aortoiliac athero sclerotic vascular calcification without aneurysm. LYMPHATICS: No e nlarged lymph nodes by CT size criteria. PERITONEUM/OTHER: No intraperiton eal free air. No intraperitoneal free fluid. BONES/SOFT TISSUES: Deg enerative changes of the spine, sacral iliac joints, pubic symphysis, and hips. IMPRESSION: No acute findings on noncontrast CT of the abdomen and pelvis. PAGE 1 Signed Report (CONTINUED) Name: RADHA MEANS [facility] : 1950 Age/ S: 69 / M [address] [facility] Unit #: [id number] Loc: [place] [address] Phys: Gatito Ortega MD Acct: [id number] Dis Date: Status: REG ER PHONE #: [phone] Exam Date: 02/03/2020 07 FAX #: [phone] Reason: LUQ abdominal pain EXAMS: CPT CODE: [id number] CT ABD PELVIS W/O CONT 55892 <Continued> LOCATION: LP at 0735 Reported and signed by: Blanche Ordonez D.O. CC: Gatito Ortega MD; Maik Sanchez III, MD Technologist:MACRELL MATTHEWS RT(R),CT CTDI: DLP: Trnscb Date/Time: 02/03/2020 (734) [email or web address] Orig Print D/T: S: 02/03/2020 (0738) PAGE 2 Signed Report CBC W/AUTO [id number] 06:52:00* Test Item Value Reference Range Interpretation Comments WHITE BLOOD CELL (test code = WBC) 13.1 K/mm3 4.5-12.5 H RED BLOOD CELL (test code = RBC) 2.84 mill/mm3 4.0-5.8 L HEMOGLOBIN (test code = HGB) 6.3 gram/dL 13.0-17.5 L HEMATOCRIT (test code = HCT) 21.7 % 42.0-52.0 LL Results called to [id number] by LADANIN 02/03/20 0626Critical results verified and read back by Nurse? Y MEAN CELL VOLUME (test code = MCV) 76.4 fL 80-98 L MEAN CELL HGB (test code = MCH) 22.2 picogram 27.0-33.0 L MEAN CELL HGB CONCETRATION (test code = MCHC) 29.0 gram/dL 33.0-36. 0 L RED CELL DISTRIBUTION WIDTH (test code = RDW) 17.6 % 11.6-16. 2 H RED CELL DISTRIBUTION WIDTH SD (test code = RDW-SD) 49.9 fL 37 .0-51.0 N PLATELET COUNT (test code = PLT) 336 K/mm3 150-450 N MEAN PLATELET VOLUME (test code = MPV) 9.5 fL 6.7-11.0 N NEUTROPHIL % (test code = NT%) 56.9 % 39.0-69.0 N LYMPHOCYTE % (test code = LY%) 31.8 % 25.0-55.0 N MONOCYTE % (test code = MO%) 5.6 % 0.0-10.0 N EOSINOPHIL % (test code = EO%) 5.3 % 0.0-5.0 H BASOPHIL % (test code = BA%) 0.2 % 0.0-1.0 N NEUTROPHIL # (test code = NT#) 7.48 K/mm3 1.8-7.7 N LYMPHOCYTE # (test code = LY#) 4.17 K/mm3 1.0-5.0 N MONOCYTE # (test code = MO#) 0.73 K/mm3 0-0.8 N EOSINOPHIL # (test code = EO#) 0.70 K/mm3 0.0-0.5 H BASOPHIL # (test code = BA#) 0.02 K/mm3 0.0-0.2 N MANUAL DIFF REQUIRED (test code = MDIFF) NO, ONLY SCAN NEEDED DIFFERENTIAL [id number] 06:52:00* Test Item Value Reference Range Interpretation Comments STAIN ACCEPTABILITY (test code = STN ACCEPTABLE) STAIN ACCEPTABLE HYPOCHROMIA (test code = HYPO) 3+ MICROCYTOSIS (test code = MICR) 1+ PLATELET ESTIMATE (test code = PLTEST) ADEQUATE PLATELET MORPHOLOGY (test code = PLTMORPH) NORMAL COMPREHENSIVE METABOLIC [id number] 06:42:00* Test Item Value Reference Range Interpretation Comments SODIUM (test code = NA) 141 mmol/L 136-145 N POTASSIUM (test code = K) 3.8 mmol/L 3.5-5.1 N CHLORIDE (test code = CL) 105 mmol/L 101-109 N CARBON DIOXIDE (test code = CO2) 25.2 mmol/L 21-32 N ANION GAP (test code = GAP) 15 mmol/L 10-20 N GLUCOSE (test code = GLU) 119 mg/dL 74-106 H BLOOD UREA NITROGEN (test code = BUN) 35 mg/dL 3-21 H CREATININE (test code = CREAT) 1.84 mg/dL 0.55-1.3 H BUN/CREATININE RATIO (test code = BUN/CREA) 19.0 10-20 N TOTAL PROTEIN (test code = PROT) 7.0 g/dL 6.5-8.4 N ALBUMIN (test code = ALB) 3.4 g/dL 3.4-4.8 N GLOBULIN (test code = GLOB) 3.6 G/DL 1-10 N ALBUMIN/GLOBULIN RATIO (test code = A/G) 0.94 RATIO 0.75-1.50 N CALCIUM (test code = CA) 9.1 mg/dL 8.4-10.2 N BILIRUBIN TOTAL (test code = BILT) 0.40 mg/dL 0.0-1.0 N SGOT/AST (test code = AST) 22 U/L 6-32 N SGPT/ALT (test code = ALT) 19 U/L 12-78 N N ote: Change in REFERENCE RANGE due to new reagent method. ALKALINE PHOSPHATASE TOTAL (test code = ALKP) 90 U/L 38-126 N [id number] 06:42:00* Test Item Value Reference Range Interpretation Comments LIPASE (test code = LIP) 181 U/L 128-270 N [id number] 06:42:00* Test Item Value Reference Range Interpretation Comments TROPONIN-I (test code = TROPI) <0.015 ng/mL 0.00-0.056 N - XR CHEST 1 [id number] 06:38:00 Name: CLARYSAMMI Meghna [facility] : 1950 Age/S:69 /M [address] [facility] Unit#:[id number] Loc: [place] [address] Phys: Gatito Ortega MD Dis Date: PHONE #: [phone] Status: PRE ER FAX #: [phone] Exam Date: 02/03/2020 Reason: LUQ abdominal pain EXAMS: CPT CODE: [id number] XR CHEST 1 V 53248 EXAM: - XR CHEST 1 V LOCATION: C3 HISTORY: LUQ abdominal pain COMPARISON: 12/07/2019 FINDINGS: Single view of the chest. No indwelling lines or tubes. No pneumothorax. Low lung volumes with bibasilar subsegmental atelectasis. The mediastinal contours are unremarkable/unchanged. No acute osseous findings are present. IMPRESSION: Low lung volumes with bibasilar subsegmental atelectasis. at 0638 Reported and signed by: Tyson Waldron M.D. CC: Gatito Zuniga MD; Maik Sanchez III, MD Technologist: MARCELL ROME RT(R),CT Trnscrpt Data: 02/03/2020 (06) t.SDR .HV2 Orig Print D/T: S: 02/03/2020 (0658) PAGE 1 Signed Report PROTHROMBIN [id number] 06:35:00* Test Item Value Reference Range Interpretation Comments PROTHROMBIN TIME PATIENT (test code = PTP) 10.1 seconds 9.0-13.0 N INTERNATIONAL NORMAL RATIO (test code = INR) 1.0 0.8-1.2 N The therapeutic range for oral anticoagulant therapy formost indications is an international normalized ratio (INR)of between 2.0 and 3.0. The recommended therapeutic INRrange for various clinical situations is listed below: Clinical Situation INR range Pulmonary e mbolism treatment (2.0-3.0)Venous thrombosis treatmentVenous thrombosis prophylaxis (high risk surgery)Prevention of systemic embolism from: Acute myocardial infarction Valvular heart disease Atrial fibrillation Mechanical prosthetic heart valves (2.5-3.5) IS PATIENT ON ANTICOAGULANTS? NTHROMBOPLASTIN TIME [id number] 06:35:00* Test Item Value Reference Range Interpretation Comments THROMBOPLASTIN TIME PARTIAL (test code = PTT) 19.2 seconds 25.5-34. 3 L Therapeutic Range for patients on Heparin Therapy is 2 to2.5 times their baseline PTT level. IS PATIENT ON ANTICOAGULANTS? NCOMPREHENSIVE METABOLIC [id number] 06:34:00 * Test Item Value Reference Range Interpretation Comments SODIUM (test code = NA) 141 mmol/L 136-145 N POTASSIUM (test code = K) 3.8 mmol/L 3.5-5.1 N CHLORIDE (test code = CL) 105 mmol/L 101-109 N CARBON DIOXIDE (test code = CO2) 25.2 mmol/L 21-32 N ANION GAP (test code = GAP) 15 mmol/L 10-20 N GLUCOSE (test code = GLU) 119 mg/dL 74-106 H BLOOD UREA NITROGEN (test code = BUN) 35 mg/dL 3-21 H CREATININE (test code = CREAT) 1.84 mg/dL 0.55-1.3 H BUN/CREATININE RATIO (test code = BUN/CREA) 19.0 10-20 N TOTAL PROTEIN (test code = PROT) gram/dL 6.4-8.2 ALBUMIN (test code = ALB) g/dL 3.4-5.0 GLOBULIN (test code = GLOB) g/dL 2.7-4.2 ALBUMIN/GLOBULIN RATIO (test code = A/G) 0.75-1.50 CALCIUM (test code = CA) 9.1 mg/dL 8.4-10.2 N BILIRUBIN TOTAL (test code = BILT) mg/dL 0.2-1.2 SGOT/AST (test code = AST) IUnit/L 15-37 SGPT/ALT (test code = ALT) U/L 10-69 ALKALINE PHOSPHATASE TOTAL (test code = ALKP) IUnit/L 45-117 [id number] 06:34:00* Test Item Value Reference Range Interpretation Comments LIPASE (test code = LIP) Unit/L 144-286 [id number] 06:34:00* Test Item Value Reference Range Interpretation Comments TROPONIN-I (test code = TROPI) ng/mL 0-0.045 DRUGS OF ABUSE SCREEN [id number] 06:34:00* Test Item Value Reference Range Interpretation Comments URN COCAINE (test code = COCAURN) NEGATIVE NEGATIVE URN CANNABINOIDS (test code = CANNABURN) NEGATIVE NEGATIVE URN AMPHETAMINE (test code = AMPHETURN) NEGATIVE NEGATIVE URN BARBITURATE (test code = BARBITURN) NEGATIVE NEGATIVE URN BENZODIAZEPINE (test code = BENZOURN) NEGATIVE NEGATIVE URN OPIATES (test code = OPIATURN) POSITIVE NEGATIVE A URN PHENCYCLIDINE (PCP) (test code = PHENCURN) NEGATIVE NEGATIV E URINALYSIS [id number] 06:33:00* Test Item Value Reference Range Interpretation Comments UA COLOR (test code = COLU) YELLOW YELLOW UA APPEARANCE (test code = APPU) CLEAR CLEAR UA GLUCOSE DIPSTICK (test code = DGLUU) norm mg/dL NEGATIVE UA BILIRUBIN DIPSTICK (test code = BILU) NEGATIVE mg/dL NEGATIVE UA KETONE DIPSTICK (test code = KETU) neg mg/dL NEGATIVE UA SPECIFIC GRAVITY (test code = SGU) 1.015 1.001-1.035 UA BLOOD DIPSTICK (test code = ROSALINA) neg Jaguar/uL NEGATIVE UA PH DIPSTICK (test code = BRODY) 5.0 5.0-8.0 UA PROTEIN DIPSTICK (test code = PROU) neg mg/dL Neg-15 UA UROBILINIOGEN DIPSTICK (test code = URO) norm mg/dL 0.0-0.2 UA NITRITE DIPSTICK (test code = JONATHAN) NEGATIVE NEGATIVE UA LEUKOCYTE ESTERASE DIPSTICK (test code = LEUU) neg uL NEGA TIVE UA WBC (test code = WBCU) 0-5 per HPF 0-5 UA RBC (test code = RBCU) 0-3 per HPF 0-5 UA EPITHELIAL CELLS (test code = EPIU) Few (2-5/hpf) per HPF Few UA BACTERIA (test code = BACU) FEW per HPF NONE Urine Source? Clean CatchURINALYSIS [id number] 06:27:00* Test Item Value Reference Range Interpretation Comments UA COLOR (test code = COLU) YELLOW YELLOW UA APPEARANCE (test code = APPU) CLEAR CLEAR UA GLUCOSE DIPSTICK (test code = DGLUU) norm mg/dL NEGATIVE UA BILIRUBIN DIPSTICK (test code = BILU) NEGATIVE mg/dL NEGATIVE UA KETONE DIPSTICK (test code = KETU) neg mg/dL NEGATIVE UA SPECIFIC GRAVITY (test code = SGU) 1.015 1.001-1.035 UA BLOOD DIPSTICK (test code = ROSALINA) neg Jaguar/uL NEGATIVE UA PH DIPSTICK (test code = BRODY) 5.0 5.0-8.0 UA PROTEIN DIPSTICK (test code = PROU) neg mg/dL Neg-15 UA UROBILINIOGEN DIPSTICK (test code = URO) norm mg/dL 0.0-0.2 UA NITRITE DIPSTICK (test code = JONATHAN) NEGATIVE NEGATIVE UA LEUKOCYTE ESTERASE DIPSTICK (test code = LEUU) neg uL NEGA TIVE UA WBC (test code = WBCU) per HPF 0-5 UA RBC (test code = RBCU) per HPF 0-5 UA EPITHELIAL CELLS (test code = EPIU) per HPF Few UA BACTERIA (test code = BACU) per HPF NONE Urine Source? Clean CatchCBC W/AUTO [id number] 06:27:00* Test Item Value Reference Range Interpretation Comments WHITE BLOOD CELL (test code = WBC) 13.1 K/mm3 4.5-12.5 H RED BLOOD CELL (test code = RBC) 2.84 mill/mm3 4.0-5.8 L HEMOGLOBIN (test code = HGB) 6.3 gram/dL 13.0-17.5 L HEMATOCRIT (test code = HCT) 21.7 % 42.0-52.0 LL Results called to [id number] by V.LAB.IN 02/03/20 0626Critical results verified and read back by Nurse? Y MEAN CELL VOLUME (test code = MCV) 76.4 fL 80-98 L MEAN CELL HGB (test code = MCH) 22.2 picogram 27.0-33.0 L MEAN CELL HGB CONCETRATION (test code = MCHC) 29.0 gram/dL 33.0-36. 0 L RED CELL DISTRIBUTION WIDTH (test code = RDW) 17.6 % 11.6-16. 2 H RED CELL DISTRIBUTION WIDTH SD (test code = RDW-SD) 49.9 fL 37 .0-51.0 N PLATELET COUNT (test code = PLT) 336 K/mm3 150-450 N MEAN PLATELET VOLUME (test code = MPV) 9.5 fL 6.7-11.0 N NEUTROPHIL % (test code = NT%) 56.9 % 39.0-69.0 N LYMPHOCYTE % (test code = LY%) 31.8 % 25.0-55.0 N MONOCYTE % (test code = MO%) 5.6 % 0.0-10.0 N EOSINOPHIL % (test code = EO%) 5.3 % 0.0-5.0 H BASOPHIL % (test code = BA%) 0.2 % 0.0-1.0 N NEUTROPHIL # (test code = NT#) 7.48 K/mm3 1.8-7.7 N LYMPHOCYTE # (test code = LY#) 4.17 K/mm3 1.0-5.0 N MONOCYTE # (test code = MO#) 0.73 K/mm3 0-0.8 N EOSINOPHIL # (test code = EO#) 0.70 K/mm3 0.0-0.5 H BASOPHIL # (test code = BA#) 0.02 K/mm3 0.0-0.2 N MANUAL DIFF REQUIRED (test code = MDIFF) NO, ONLY SCAN NEEDED DIFFERENTIAL [id number] 06:27:00* Test Item Value Reference Range Interpretation Comments STAIN ACCEPTABILITY (test code = STN ACCEPTABLE) CABOT RINGS (test code = CAB) MORPHOLOGY COMMENT (test code = MOC) PLATELET ESTIMATE (test code = PLTEST) PLATELET MORPHOLOGY (test code = PLTMORPH) CBC W/AUTO [id number] 06:27:00* Test Item Value Reference Range Interpretation Comments WHITE BLOOD CELL (test code = WBC) 13.1 K/mm3 4.5-12.5 H RED BLOOD CELL (test code = RBC) 2.84 mill/mm3 4.0-5.8 L HEMOGLOBIN (test code = HGB) 6.3 gram/dL 13.0-17.5 L HEMATOCRIT (test code = HCT) 21.7 % 42.0-52.0 LL Results called to [id number] by LADANIN 02/03/20 0626Critical results verified and read back by Nurse? Y MEAN CELL VOLUME (test code = MCV) 76.4 fL 80-98 L MEAN CELL HGB (test code = MCH) 22.2 picogram 27.0-33.0 L MEAN CELL HGB CONCETRATION (test code = MCHC) 29.0 gram/dL 33.0-36. 0 L RED CELL DISTRIBUTION WIDTH (test code = RDW) 17.6 % 11.6-16. 2 H RED CELL DISTRIBUTION WIDTH SD (test code = RDW-SD) 49.9 fL 37 .0-51.0 N PLATELET COUNT (test code = PLT) 336 K/mm3 150-450 N MEAN PLATELET VOLUME (test code = MPV) 9.5 fL 6.7-11.0 N NEUTROPHIL % (test code = NT%) 56.9 % 39.0-69.0 N LYMPHOCYTE % (test code = LY%) 31.8 % 25.0-55.0 N MONOCYTE % (test code = MO%) 5.6 % 0.0-10.0 N EOSINOPHIL % (test code = EO%) 5.3 % 0.0-5.0 H BASOPHIL % (test code = BA%) 0.2 % 0.0-1.0 N NEUTROPHIL # (test code = NT#) 7.48 K/mm3 1.8-7.7 N LYMPHOCYTE # (test code = LY#) 4.17 K/mm3 1.0-5.0 N MONOCYTE # (test code = MO#) 0.73 K/mm3 0-0.8 N EOSINOPHIL # (test code = EO#) 0.70 K/mm3 0.0-0.5 H BASOPHIL # (test code = BA#) 0.02 K/mm3 0.0-0.2 N MANUAL DIFF REQUIRED (test code = MDIFF) NO, ONLY SCAN NEEDED DIFFERENTIAL [id number] 06:27:00* Test Item Value Reference Range Interpretation Comments STAIN ACCEPTABILITY (test code = STN ACCEPTABLE) MORPHOLOGY COMMENT (test code = MOC) PLATELET ESTIMATE (test code = PLTEST) PLATELET MORPHOLOGY (test code = PLTMORPH) CBC W/AUTO [id number] 06:26:00* Test Item Value Reference Range Interpretation Comments WHITE BLOOD CELL (test code = WBC) 13.1 K/mm3 4.5-12.5 H RED BLOOD CELL (test code = RBC) 2.84 mill/mm3 4.0-5.8 L HEMOGLOBIN (test code = HGB) 6.3 gram/dL 13.0-17.5 L HEMATOCRIT (test code = HCT) 21.7 % 42.0-52.0 LL Results called to [id number] by V.LAB.IN 02/03/20 0626Critical results verified and read back by Nurse? Y MEAN CELL VOLUME (test code = MCV) 76.4 fL 80-98 L MEAN CELL HGB (test code = MCH) 22.2 picogram 27.0-33.0 L MEAN CELL HGB CONCETRATION (test code = MCHC) 29.0 gram/dL 33.0-36. 0 L RED CELL DISTRIBUTION WIDTH (test code = RDW) 17.6 % 11.6-16. 2 H RED CELL DISTRIBUTION WIDTH SD (test code = RDW-SD) 49.9 fL 37 .0-51.0 N PLATELET COUNT (test code = PLT) 336 K/mm3 150-450 N MEAN PLATELET VOLUME (test code = MPV) 9.5 fL 6.7-11.0 N NEUTROPHIL % (test code = NT%) 56.9 % 39.0-69.0 N LYMPHOCYTE % (test code = LY%) 31.8 % 25.0-55.0 N MONOCYTE % (test code = MO%) 5.6 % 0.0-10.0 N EOSINOPHIL % (test code = EO%) 5.3 % 0.0-5.0 H BASOPHIL % (test code = BA%) 0.2 % 0.0-1.0 N NEUTROPHIL # (test code = NT#) 7.48 K/mm3 1.8-7.7 N LYMPHOCYTE # (test code = LY#) 4.17 K/mm3 1.0-5.0 N MONOCYTE # (test code = MO#) 0.73 K/mm3 0-0.8 N EOSINOPHIL # (test code = EO#) 0.70 K/mm3 0.0-0.5 H BASOPHIL # (test code = BA#) 0.02 K/mm3 0.0-0.2 N MANUAL DIFF REQUIRED (test code = MDIFF) NO, ONLY SCAN NEEDED DIFFERENTIAL [id number] 06:26:00* Test Item Value Reference Range Interpretation Comments STAIN ACCEPTABILITY (test code = STN ACCEPTABLE) CABOT RINGS (test code = CAB) MORPHOLOGY COMMENT (test code = MOC) PLATELET ESTIMATE (test code = PLTEST) PLATELET MORPHOLOGY (test code = PLTMORPH) CBC W/AUTO [id number] 06:26:00* Test Item Value Reference Range Interpretation Comments WHITE BLOOD CELL (test code = WBC) 13.1 K/mm3 4.5-12.5 H RED BLOOD CELL (test code = RBC) 2.84 mill/mm3 4.0-5.8 L HEMOGLOBIN (test code = HGB) 6.3 gram/dL 13.0-17.5 L HEMATOCRIT (test code = HCT) 21.7 % 42.0-52.0 LL Results called to [id number] by Visible [email or web address] 02/03/20 0626Critical results verified and read back by Nurse? Y MEAN CELL VOLUME (test code = MCV) 76.4 fL 80-98 L MEAN CELL HGB (test code = MCH) 22.2 picogram 27.0-33.0 L MEAN CELL HGB CONCETRATION (test code = MCHC) 29.0 gram/dL 33.0-36. 0 L RED CELL DISTRIBUTION WIDTH (test code = RDW) 17.6 % 11.6-16. 2 H RED CELL DISTRIBUTION WIDTH SD (test code = RDW-SD) 49.9 fL 37 .0-51.0 N PLATELET COUNT (test code = PLT) 336 K/mm3 150-450 N MEAN PLATELET VOLUME (test code = MPV) 9.5 fL 6.7-11.0 N NEUTROPHIL % (test code = NT%) 56.9 % 39.0-69.0 N LYMPHOCYTE % (test code = LY%) 31.8 % 25.0-55.0 N MONOCYTE % (test code = MO%) 5.6 % 0.0-10.0 N EOSINOPHIL % (test code = EO%) 5.3 % 0.0-5.0 H BASOPHIL % (test code = BA%) 0.2 % 0.0-1.0 N NEUTROPHIL # (test code = NT#) 7.48 K/mm3 1.8-7.7 N LYMPHOCYTE # (test code = LY#) 4.17 K/mm3 1.0-5.0 N MONOCYTE # (test code = MO#) 0.73 K/mm3 0-0.8 N EOSINOPHIL # (test code = EO#) 0.70 K/mm3 0.0-0.5 H BASOPHIL # (test code = BA#) 0.02 K/mm3 0.0-0.2 N MANUAL DIFF REQUIRED (test code = MDIFF) NO, ONLY SCAN NEEDED DIFFERENTIAL [id number] 06:26:00* Test Item Value Reference Range Interpretation Comments STAIN ACCEPTABILITY (test code = STN ACCEPTABLE) CABOT RINGS (test code = CAB) MORPHOLOGY COMMENT (test code = MOC) PLATELET ESTIMATE (test code = PLTEST) PLATELET MORPHOLOGY (test code = PLTMORPH) Bedside Lunjecj8828-11-98 15:01:00* Test Item Value Reference Range Interpretation Comments Bedside Glucose (test code = 01388-4) 155 70-120 Meter ID: [id number] [facility] 2019-[facility] 09:41:00* Test Item Value Reference Range Interpretation Comments Hypochromasia (test code = 728-6) [facility] [id number] 05:30:00* Test Item Value Reference Range Interpretation Comments Sodium Level (test code = 2951-2) 142 136-145 [facility] Jhyof8319-00-14 05:30:00* Test Item Value Reference Range Interpretation Comments Potassium Level (test code = 2823-3) 3.7 3.5-5.1 [facility] WorthChloride Vvtjh5297-38-80 05:30:00* Test Item Value Reference Range Interpretation Comments Chloride Level (test code = 2075-0) 109 98-107 [facility] WorthCarbon Dioxide Fwrhy5605-90-91 05:30:00* Test Item Value Reference Range Interpretation Comments Carbon Dioxide Level (test code = 2028-9) 26 22-29 [facility] WorthAnion Kws6925-26-09 05:30:00* Test Item Value Reference Range Interpretation Comments Anion Gap (test code = 14269-0) 10.7 8-16 [facility] WorthBlood Urea Qnoodoaj9145-13-91 05:30:00* Test Item Value Reference Range Interpretation Comments Blood Urea Nitrogen (test code = 3094-0) 17 7- [facility] WorthCreatinine2020-03-23 05:30:00* Test Item Value Reference Range Interpretation Comments Creatinine (test code = 2160-0) 1.19 0.72-1.25 [facility] WorthBUN/Creatinine Fmayz7006-47-83 05:30:00* Test Item Value Reference Range Interpretation Comments BUN/Creatinine Ratio (test code = 3097-3) 14 6- [facility] WorthEstimat Glomerular Filtration Rate 2019-12-22 05:30:00* Test Item Value Reference Range Interpretation Comments Estimat Glomerular Filtration Rate (test code = 479383349) > 60 >60 Ranges were taken from the National Kidney Disease Education Program and the [facility] literature.Reference ranges:60 or greater: Rhisuv36-73 ( for 3 consecutive months): Chronic kidney disease 15 or less: Kidney failureTexas [facility] Southwest Fort WorthGlucose Syfpl2944-00-03 05:30:00* Test Item Value Reference Range Interpretation Comments Glucose Level (test code = LBY2530) 100 74-118 [facility] WorthCalcium Pjamj9761-28-38 05:30:00* Test Item Value Reference Range Interpretation Comments Calcium Level (test code = 10656-0) 10.0 8.4-10.2 [facility] WorthMagnesium Spozm8719-93-28 05:30:00* Test Item Value Reference Range Interpretation Comments Magnesium Level (test code = 92453-9) 1.8 1.3-2.1 [facility] WorthWhite Blood Awpto6199-82-05 05:11:00* Test Item Value Reference Range Interpretation Comments White Blood Count (test code = 6690-2) 8.00 4.8-10.8 [facility] WorthRed Blood Rhdbj1293-25-53 05:11:00* Test Item Value Reference Range Interpretation Comments Red Blood Count (test code = 789-8) 3.55 4.3-5.7 [facility] 05:11:00* Test Item Value Reference Range Interpretation Comments Hemoglobin (test code = 30898-8) 7.9 14.0-18.0 [facility]Hematocrit2020-03-23 05:11:00* Test Item Value Reference Range Interpretation Comments Hematocrit (test code = 4544-3) 28.2 38.2-49.6 [facility] WorthMean Corpuscular Pdkfnq2314-73-70 05:11:00* Test Item Value Reference Range Interpretation Comments Mean Corpuscular Volume (test code = 787-2) 79.4 81-99 [facility] WorthMean Corpuscular Rhkkyaaboz3590-85-75 05:11:00* Test Item Value Reference Range Interpretation Comments Mean Corpuscular Hemoglobin (test code = 785-6) 22.3 28-32 [facility] WorthMean Corpuscular Hemoglobin Concent 2019-12-22 05:11:00* Test Item Value Reference Range Interpretation Comments Mean Corpuscular Hemoglobin Concent (test code = 786-4) 28.0 31-35 [facility] WorthRed Cell Distribution Heblq9041-73-33 05:11:00* Test Item Value Reference Range Interpretation Comments Red Cell Distribution Width (test code = 79702-5) 18.2 11.7 -14.4 [facility] WorthPlatelet Vcumn7108-31-53 05:11:00* Test Item Value Reference Range Interpretation Comments Platelet Count (test code = 777-3) 256 140-360 [facility] WorthNeutrophils (%) (Auto)2019-12-22 05:11:00 * Test Item Value Reference Range Interpretation Comments Neutrophils (%) (Auto) (test code = 87443-4) 47.4 38.7-80.0 [facility] WorthLymphocytes (%) (Auto)2019-12-22 05:11:00 * Test Item Value Reference Range Interpretation Comments Lymphocytes (%) (Auto) (test code = 736-9) 39.4 18.0-39.1 [facility] WorthMonocytes (%) (Auto)2019-12-22 05:11:00* Test Item Value Reference Range Interpretation Comments Monocytes (%) (Auto) (test code = 5905-5) 7.6 4.4-11.3 [facility] WorthEosinophils (%) (Auto)2019-12-22 05:11:00 * Test Item Value Reference Range Interpretation Comments Eosinophils (%) (Auto) (test code = 713-8) 4.9 0.0-6.0 [facility] Worth[facility]ophils (%) (Auto)2019-12-22 05:11:00* Test Item Value Reference Range Interpretation Comments Basophils (%) (Auto) (test code = 706-2) 0.4 0.0-1.0 [facility] WorthIM GRANULOCYTES %2019-12-22 05:11:00* Test Item Value Reference Range Interpretation Comments IM GRANULOCYTES % (test code = IM GRANULOCYTES %) 0.3 0.0- 1.0 [facility] WorthNeutrophils # (Auto)2019-12-22 05:11:00* Test Item Value Reference Range Interpretation Comments Neutrophils # (Auto) (test code = 751-8) 3.8 2.1-6.9 [facility] WorthLymphocytes # (Auto)2019-12-22 05:11:00* Test Item Value Reference Range Interpretation Comments Lymphocytes # (Auto) (test code = 58130-3) 3.2 1.0-3.2 [facility] WorthMonocytes # (Auto)2019-12-22 05:11:00* Test Item Value Reference Range Interpretation Comments Monocytes # (Auto) (test code = 742-7) 0.6 0.2-0.8 [facility] WorthEosinophils # (Auto)2019-12-22 05:11:00* Test Item Value Reference Range Interpretation Comments Eosinophils # (Auto) (test code = 711-2) 0.4 0.0-0.4 [facility] WorthBasophils # (Auto)2019-12-22 05:11:00* Test Item Value Reference Range Interpretation Comments Basophils # (Auto) (test code = 704-7) 0.0 0.0-0.1 [facility] WorthAbsolute Immature Granulocyte (auto 2019-12-22 05:11:00* Test Item Value Reference Range Interpretation Comments Absolute Immature Granulocyte (auto (jacky t code = Absolute Immature Granulocyte (auto) 0.02 0-0.1 [facility] WorthThyroid Stimulating Hormone (TSH) 2019-12-21 05:56:00* Test Item Value Reference Range Interpretation Comments Thyroid Stimulating Hormone (TSH) (test code = 72593-8) 0.316 0.350-4.940 [facility] WorthHemoglobin A1c Fahanuu9236-93-10 05:34:00 * Test Item Value Reference Range Interpretation Comments Hemoglobin A1c Percent (test code = Hemoglobin A1c Percent) 5.8 4.0-7.0 [facility] WorthPhosphorus Crdzt5411-07-47 05:33:00* Test Item Value Reference Range Interpretation Comments Phosphorus Level (test code = WMB8298) 2.3 2.3-4.7 [facility] WorthTriglycerides Lvazv8525-23-27 05:33:00* Test Item Value Reference Range Interpretation Comments Triglycerides Level (test code = 2571-8) 109 0-149 [facility] WorthCholesterol Piwip1580-64-37 05:33:00* Test Item Value Reference Range Interpretation Comments Cholesterol Level (test code = 2093-3) 132 0-199 Less than 200 mg/dL Low Vzcm210 - 239 mg/dL Borderline Uowa754 m g/dl and greater High Risk [facility] WorthLDL Ayoysbljkrs1854-92-53 05:33:00* Test Item Value Reference Range Interpretation Comments LDL Cholesterol (test code = 2089-1) 82 60-130 [facility] WorthHDL Twwusujdezo3557-27-46 05:33:00* Test Item Value Reference Range Interpretation Comments HDL Cholesterol (test code = 2085-9) 28 40-60 [facility] WorthCholesterol/HDL Qktcl1166-63-32 05:33:00 * Test Item Value Reference Range Interpretation Comments Cholesterol/HDL Ratio (test code = 9830-1) 4.7 3.9-4.7 [facility] WorthUrine PPB0202-72-40 23:40:00* Test Item Value Reference Range Interpretation Comments Urine WBC (test code = 5821-4) 21-50 0-5 [facility] WorthUrine [id number] 23:40:00* Test Item Value Reference Range Interpretation Comments Urine RBC (test code = 36645-6) 11-20 0-5 [facility] WorthUrine Wbyyibsp8159-24-74 23:40:00* Test Item Value Reference Range Interpretation Comments Urine Bacteria (test code = 78304-2) MANY NONE [facility] WorthU[facility] Epithelial Gizlg9141-09-47 23:40:00 * Test Item Value Reference Range Interpretation Comments Urine Epithelial Cells (test code = 82978-8) FEW NONE [facility] WorthU[facility] Transitional Epithelial Cells 2019-12-20 23:40:00* Test Item Value Reference Range Interpretation Comments Urine Transitional Epithelial Cells (test code = 8249-5) MODERATE NONE [facility] WorthU[facility] Renal Epithelial Nckil5792-00-27 23:40:00* Test Item Value Reference Range Interpretation Comments Urine Renal Epithelial Cells (test code = 25043-2) MANY NON E [facility] WorthUrine Fidrq2205-51-63 23:40:00* Test Item Value Reference Range Interpretation Comments Urine Mucus (test code = 8247-9) MANY RARE [facility] WorthU[facility] Akfbz2796-63-53 23:31:00* Test Item Value Reference Range Interpretation Comments Urine Color (test code = 5778-6) YELLOW YELLOW [facility] WorthU[facility] Ianslqd7254-62-30 23:31:00* Test Item Value Reference Range Interpretation Comments Urine Clarity (test code = 79796-6) CLOUDY CLEAR [facility] WorthUrine Specific Qyekxcv2660-23-32 23:31:00 * Test Item Value Reference Range Interpretation Comments Urine Specific [place] (test code = 5811-5) 1.025 1.010-1.02 5 [facility] WorthUrine uS4161-60-01 23:31:00* Test Item Value Reference Range Interpretation Comments Urine pH (test code = 93683-1) 5.5 5-7 [facility] WorthU[facility] Leukocyte Aymyslvn3901-89-47 23:31:00* Test Item Value Reference Range Interpretation Comments Urine Leukocyte Esterase (test code = 5799-2) NEGATIVE NEGATIVE [facility] WorthUrine Zcmusck3451-76-75 23:31:00* Test Item Value Reference Range Interpretation Comments Urine Nitrite (test code = 10916-4) NEGATIVE NEGATIVE [facility] WorthUrine Nzbagqq4076-28-19 23:31:00* Test Item Value Reference Range Interpretation Comments Urine Protein (test code = 5804-0) 2+ NEGATIVE [facility] WorthU[facility] Glucose (UA)2019-12-20 23:31:00* Test Item Value Reference Range Interpretation Comments Urine Glucose (UA) (test code = 2349-9) NEGATIVE NEGATIVE [facility] WorthU[facility] Izfrjqr0899-55-42 23:31:00* Test Item Value Reference Range Interpretation Comments Urine Ketones (test code = 42666-0) NEGATIVE NEGATIVE [facility] WorthUrine Wtmdcjlenbui2552-16-82 23:31:00* Test Item Value Reference Range Interpretation Comments Urine Urobilinogen (test code = 52395-4) 0.2 0.2-1 [facility] WorthU[facility] Pyjmfmvuf0993-74-87 23:31:00* Test Item Value Reference Range Interpretation Comments Urine Bilirubin (test code = 1978-6) SMALL NEGATIVE [facility] WorthU[facility] Ntoyw4475-24-83 23:31:00* Test Item Value Reference Range Interpretation Comments Urine Blood (test code = 26544-7) NEGATIVE NEGATIVE [facility] WorthCreatine Ymwskj5445-47-83 17:19:00* Test Item Value Reference Range Interpretation Comments Creatine Kinase (test code = 2157-6) 51 30-200 [facility] WorthCreatine Kinase [id number] 17:19:00* Test Item Value Reference Range Interpretation Comments Creatine Kinase MB (test code = 65680-0) 2.20 0-5.0 [facility] WorthTroponin [id number] 17:19:00* Test Item Value Reference Range Interpretation Comments Troponin I (test code = YDX8965) 0.013 0-0.300 [facility]2019-12-19 17:35:00 [facility] [address] [address] Patient Name: SAMMI MEANS MR #: [id number] : 1950 Age/Sex: 69/M Req #: [id number] Adm Physician: Ordered by: ANY LOZA LICENSED PSYCHOLOGIST Report #: [id number] Location: ER Room/Bed: Procedure: [id number] DX /CHEST SINGLE (NOT PORTABLE) Exam Date: 12/19/19 Exa m Time: 1636 REPORT STATUS: Signed EXAM: CHEST SINGLE (NOT PORTABLE) DATE: 12/19/2019 3:25 PM INDICA TION: Dyspnea ERMD ORDER [id number] Y COMPARISON: Chest x-ray, 02/20/2017 FINDINGS: Lines and tubes: None Cardiac silhoue tte is normal in size. There are patchy airspace opacities at both lung bas es, similar to the most recent previous exam.. Pleural thickening is again see n along the lateral aspects of the right and left hemithorax. No pleural effus ion or pneumothorax. Upper abdomen unremarkable. No acute bony abnormality. Anchors are seen in the left humeral head. IMPRESSION: Chronic bibasil ar airspace opacities, similar to 02/20/2017, which likely represent scarring, possibly recurrent atelectasis or infection in the proper clinical setting. No pleural effusion or pneumothorax. Signed by: Dr. Glenn Houston M.D. on 5:52 PM Dictated By: GLENN HOUSTON MD 53 Transcribed By: IVONE on 12/19/191751 COPY TO: ANY LOZA NP Total Vkxhxcyfb8214-43-64 17:24:00* Test Item Value Reference Range Interpretation Comments Total Bilirubin (test code = 1975-2) 0.9 0.2-1.2 [facility] WorthAspartate Amino Transf (AST/SGOT) 2019-12-19 17:24:00* Test Item Value Reference Range Interpretation Comments Aspartate Amino Transf (AST/SGOT) (test code = Aspartate Amino Transf (AST/SGOT)) 25 5-34 [facility] WorthAlanine Aminotransferase (ALT/SGPT) 2019-12-19 17:24:00* Test Item Value Reference Range Interpretation Comments Alanine Aminotransferase (ALT/SGPT) (test code = 1742-6) 18 0-55 [facility] WorthTotal Lpvqgqm2203-57-04 17:24:00* Test Item Value Reference Range Interpretation Comments Total Protein (test code = 2885-2) 8.2 6.5-8.1 [facility] WorthAlbumin2020-03-20 17:24:00* Test Item Value Reference Range Interpretation Comments Albumin (test code = 1751-7) 4.1 3.5-5.0 [facility] WorthGlobulin2020-03-20 17:24:00* Test Item Value Reference Range Interpretation Comments Globulin (test code = 26943-1) 4.1 2.3-3.5 [facility] WorthAlbumin/Globulin Uhpvz7857-82-56 17:24:00 * Test Item Value Reference Range Interpretation Comments Albumin/Globulin Ratio (test code = 1759-0) 1.0 0.8-2.0 [facility] WorthAlkaline Mgxuoqyzbes0560-56-13 17:24:00* Test Item Value Reference Range Interpretation Comments Alkaline Phosphatase (test code = 6768-6) 92 40-150 [facility] WorthB-Type Natriuretic Yhqgsqf5229-76-52 17:18:00* Test Item Value Reference Range Interpretation Comments B-Type Natriuretic Peptide (test code = 08878-5) 74.9 0-100 [facility] W/AUTO [id number] 10:40:00* Test Item Value Reference Range Interpretation Comments WHITE BLOOD CELL (test code = WBC) 7.5 K/mm3 4.5-12.5 N RED BLOOD CELL (test code = RBC) 4.20 mill/mm3 4.0-5.8 N HEMOGLOBIN (test code = HGB) 9.3 gram/dL 13.0-17.5 L HEMATOCRIT (test code = HCT) 32.1 % 42.0-52.0 L MEAN CELL VOLUME (test code = MCV) 76.4 fL 80-98 L MEAN CELL HGB (test code = MCH) 22.1 picogram 27.0-33.0 L MEAN CELL HGB CONCETRATION (test code = MCHC) 29.0 gram/dL 33.0-36. 0 L RED CELL DISTRIBUTION WIDTH (test code = RDW) 18.1 % 11.6-16. 2 H RED CELL DISTRIBUTION WIDTH SD (test code = RDW-SD) 49.3 fL 37 .0-51.0 N PLATELET COUNT (test code = PLT) 310 K/mm3 150-450 N MEAN PLATELET VOLUME (test code = MPV) 10.2 fL 6.7-11.0 N NEUTROPHIL % (test code = NT%) 60.9 % 39.0-69.0 N IMMATURE GRANULOCYTE % (test code = IG%) 0.1 % 0.0-5.0 N LYMPHOCYTE % (test code = LY%) 26.3 % 25.0-55.0 N MONOCYTE % (test code = MO%) 7.2 % 0.0-10.0 N EOSINOPHIL % (test code = EO%) 5.0 % 0.0-5.0 N BASOPHIL % (test code = BA%) 0.5 % 0.0-1.0 N NUCLEATED RBC % (test code = NRBC%) 0.0 % 0-0 N NEUTROPHIL # (test code = NT#) 4.58 K/mm3 1.8-7.7 N IMMATURE GRANULOCYTE # (test code = IG#) 0.01 x10 3/uL 0-0.03 N LYMPHOCYTE # (test code = LY#) 1.98 K/mm3 1.0-5.0 N MONOCYTE # (test code = MO#) 0.54 K/mm3 0-0.8 N EOSINOPHIL # (test code = EO#) 0.38 K/mm3 0.0-0.5 N BASOPHIL # (test code = BA#) 0.04 K/mm3 0.0-0.2 N NUCLEATED RBC # (test code = NRBC#) 0.00 K/mm3 0.0-0.1 N MANUAL DIFF REQUIRED (test code = MDIFF) NO, ONLY SCAN NEEDED DIFFERENTIAL [id number] 10:40:00* Test Item Value Reference Range Interpretation Comments STAIN ACCEPTABILITY (test code = STN ACCEPTABLE) STAIN ACCEPTABLE HYPOCHROMIA (test code = HYPO) 1+ POIKILOCYTOSIS (test code = POIK) 2+ ANISOCYTOSIS (test code = ANISO) 2+ MICROCYTOSIS (test code = MICR) 1+ ELLIPTOCYTES (test code = ELL) 2+ SCHISTOCYTES (test code = BARRY) 1+ PLATELET ESTIMATE (test code = PLTEST) ADEQUATE PLATELET MORPHOLOGY (test code = PLTMORPH) NORMAL BASIC METABOLIC [id number] 10:26:00* Test Item Value Reference Range Interpretation Comments SODIUM (test code = NA) 140 mmol/L 136-145 N POTASSIUM (test code = K) 3.0 mmol/L 3.5-5.1 L CHLORIDE (test code = CL) 107.0 mmol/L 98-107 N CARBON DIOXIDE (test code = CO2) 26.0 mmol/L 21-32 N ANION GAP (test code = GAP) 10.0 10-20 N GLUCOSE (test code = GLU) 157 mg/dL 74-106 H BLOOD UREA NITROGEN (test code = BUN) 12 mg/dL 7-18 N GLOMERULAR FILTRATION RATE (test code = GFR) 51 mL/min >=60 Estimated GFR by using Modified MDRD formula.Chronic kidney disease is defined as either kidney damageor GFR <60 mL/min/1.73 m2 for >3 months. CREATININE (test code = CREAT) 1.40 mg/dL 0.7-1.3 H BUN/CREATININE RATIO (test code = BUN/CREA) 8.6 10-20 L CALCIUM (test code = CA) 9.9 mg/dL 8.5-10.1 N [id number] 10:26:00* Test Item Value Reference Range Interpretation Comments MAGNESIUM (test code = MAG) 1.8 mg/dL 1.8-2.4 N BASIC METABOLIC [id number] 10:11:00* Test Item Value Reference Range Interpretation Comments SODIUM (test code = NA) 140 mmol/L 136-145 N POTASSIUM (test code = K) 3.0 mmol/L 3.5-5.1 L CHLORIDE (test code = CL) 107.0 mmol/L 98-107 N CARBON DIOXIDE (test code = CO2) mmol/L 21-32 ANION GAP (test code = GAP) 10-20 GLUCOSE (test code = GLU) mg/dL 74-106 BLOOD UREA NITROGEN (test code = BUN) mg/dL 7-18 GLOMERULAR FILTRATION RATE (test code = GFR) mL/min >=60 CREATININE (test code = CREAT) mg/dL 0.7-1.3 BUN/CREATININE RATIO (test code = BUN/CREA) 10-20 CALCIUM (test code = CA) mg/dL 8.5-10.1 [id number] 10:11:00* Test Item Value Reference Range Interpretation Comments MAGNESIUM (test code = MAG) mg/dL 1.8-2.4 CBC W/AUTO [id number] 09:54:00* Test Item Value Reference Range Interpretation Comments WHITE BLOOD CELL (test code = WBC) 7.5 K/mm3 4.5-12.5 N RED BLOOD CELL (test code = RBC) 4.20 mill/mm3 4.0-5.8 N HEMOGLOBIN (test code = HGB) 9.3 gram/dL 13.0-17.5 L HEMATOCRIT (test code = HCT) 32.1 % 42.0-52.0 L MEAN CELL VOLUME (test code = MCV) 76.4 fL 80-98 L MEAN CELL HGB (test code = MCH) 22.1 picogram 27.0-33.0 L MEAN CELL HGB CONCETRATION (test code = MCHC) 29.0 gram/dL 33.0-36. 0 L RED CELL DISTRIBUTION WIDTH (test code = RDW) 18.1 % 11.6-16. 2 H RED CELL DISTRIBUTION WIDTH SD (test code = RDW-SD) 49.3 fL 37 .0-51.0 N PLATELET COUNT (test code = PLT) 310 K/mm3 150-450 N MEAN PLATELET VOLUME (test code = MPV) 10.2 fL 6.7-11.0 N NEUTROPHIL % (test code = NT%) 60.9 % 39.0-69.0 N IMMATURE GRANULOCYTE % (test code = IG%) 0.1 % 0.0-5.0 N LYMPHOCYTE % (test code = LY%) 26.3 % 25.0-55.0 N MONOCYTE % (test code = MO%) 7.2 % 0.0-10.0 N EOSINOPHIL % (test code = EO%) 5.0 % 0.0-5.0 N BASOPHIL % (test code = BA%) 0.5 % 0.0-1.0 N NUCLEATED RBC % (test code = NRBC%) 0.0 % 0-0 N NEUTROPHIL # (test code = NT#) 4.58 K/mm3 1.8-7.7 N IMMATURE GRANULOCYTE # (test code = IG#) 0.01 x10 3/uL 0-0.03 N LYMPHOCYTE # (test code = LY#) 1.98 K/mm3 1.0-5.0 N MONOCYTE # (test code = MO#) 0.54 K/mm3 0-0.8 N EOSINOPHIL # (test code = EO#) 0.38 K/mm3 0.0-0.5 N BASOPHIL # (test code = BA#) 0.04 K/mm3 0.0-0.2 N NUCLEATED RBC # (test code = NRBC#) 0.00 K/mm3 0.0-0.1 N MANUAL DIFF REQUIRED (test code = MDIFF) NO, ONLY SCAN NEEDED DIFFERENTIAL [id number] 09:54:00* Test Item Value Reference Range Interpretation Comments STAIN ACCEPTABILITY (test code = STN ACCEPTABLE) CABOT RINGS (test code = CAB) MORPHOLOGY COMMENT (test code = MOC) PLATELET ESTIMATE (test code = PLTEST) PLATELET MORPHOLOGY (test code = PLTMORPH) CBC W/AUTO [id number] 09:54:00* Test Item Value Reference Range Interpretation Comments WHITE BLOOD CELL (test code = WBC) 7.5 K/mm3 4.5-12.5 N RED BLOOD CELL (test code = RBC) 4.20 mill/mm3 4.0-5.8 N HEMOGLOBIN (test code = HGB) 9.3 gram/dL 13.0-17.5 L HEMATOCRIT (test code = HCT) 32.1 % 42.0-52.0 L MEAN CELL VOLUME (test code = MCV) 76.4 fL 80-98 L MEAN CELL HGB (test code = MCH) 22.1 picogram 27.0-33.0 L MEAN CELL HGB CONCETRATION (test code = MCHC) 29.0 gram/dL 33.0-36. 0 L RED CELL DISTRIBUTION WIDTH (test code = RDW) 18.1 % 11.6-16. 2 H RED CELL DISTRIBUTION WIDTH SD (test code = RDW-SD) 49.3 fL 37 .0-51.0 N PLATELET COUNT (test code = PLT) 310 K/mm3 150-450 N MEAN PLATELET VOLUME (test code = MPV) 10.2 fL 6.7-11.0 N NEUTROPHIL % (test code = NT%) 60.9 % 39.0-69.0 N IMMATURE GRANULOCYTE % (test code = IG%) 0.1 % 0.0-5.0 N LYMPHOCYTE % (test code = LY%) 26.3 % 25.0-55.0 N MONOCYTE % (test code = MO%) 7.2 % 0.0-10.0 N EOSINOPHIL % (test code = EO%) 5.0 % 0.0-5.0 N BASOPHIL % (test code = BA%) 0.5 % 0.0-1.0 N NUCLEATED RBC % (test code = NRBC%) 0.0 % 0-0 N NEUTROPHIL # (test code = NT#) 4.58 K/mm3 1.8-7.7 N IMMATURE GRANULOCYTE # (test code = IG#) 0.01 x10 3/uL 0-0.03 N LYMPHOCYTE # (test code = LY#) 1.98 K/mm3 1.0-5.0 N MONOCYTE # (test code = MO#) 0.54 K/mm3 0-0.8 N EOSINOPHIL # (test code = EO#) 0.38 K/mm3 0.0-0.5 N BASOPHIL # (test code = BA#) 0.04 K/mm3 0.0-0.2 N NUCLEATED RBC # (test code = NRBC#) 0.00 K/mm3 0.0-0.1 N MANUAL DIFF REQUIRED (test code = MDIFF) NO, ONLY SCAN NEEDED DIFFERENTIAL [id number] 09:54:00* Test Item Value Reference Range Interpretation Comments STAIN ACCEPTABILITY (test code = STN ACCEPTABLE) CABOT RINGS (test code = CAB) MORPHOLOGY COMMENT (test code = MOC) PLATELET ESTIMATE (test code = PLTEST) PLATELET MORPHOLOGY (test code = PLTMORPH) CBC W/AUTO [id number] 09:54:00* Test Item Value Reference Range Interpretation Comments WHITE BLOOD CELL (test code = WBC) 7.5 K/mm3 4.5-12.5 N RED BLOOD CELL (test code = RBC) 4.20 mill/mm3 4.0-5.8 N HEMOGLOBIN (test code = HGB) 9.3 gram/dL 13.0-17.5 L HEMATOCRIT (test code = HCT) 32.1 % 42.0-52.0 L MEAN CELL VOLUME (test code = MCV) 76.4 fL 80-98 L MEAN CELL HGB (test code = MCH) 22.1 picogram 27.0-33.0 L MEAN CELL HGB CONCETRATION (test code = MCHC) 29.0 gram/dL 33.0-36. 0 L RED CELL DISTRIBUTION WIDTH (test code = RDW) 18.1 % 11.6-16. 2 H RED CELL DISTRIBUTION WIDTH SD (test code = RDW-SD) 49.3 fL 37 .0-51.0 N PLATELET COUNT (test code = PLT) 310 K/mm3 150-450 N MEAN PLATELET VOLUME (test code = MPV) 10.2 fL 6.7-11.0 N NEUTROPHIL % (test code = NT%) 60.9 % 39.0-69.0 N IMMATURE GRANULOCYTE % (test code = IG%) 0.1 % 0.0-5.0 N LYMPHOCYTE % (test code = LY%) 26.3 % 25.0-55.0 N MONOCYTE % (test code = MO%) 7.2 % 0.0-10.0 N EOSINOPHIL % (test code = EO%) 5.0 % 0.0-5.0 N BASOPHIL % (test code = BA%) 0.5 % 0.0-1.0 N NUCLEATED RBC % (test code = NRBC%) 0.0 % 0-0 N NEUTROPHIL # (test code = NT#) 4.58 K/mm3 1.8-7.7 N IMMATURE GRANULOCYTE # (test code = IG#) 0.01 x10 3/uL 0-0.03 N LYMPHOCYTE # (test code = LY#) 1.98 K/mm3 1.0-5.0 N MONOCYTE # (test code = MO#) 0.54 K/mm3 0-0.8 N EOSINOPHIL # (test code = EO#) 0.38 K/mm3 0.0-0.5 N BASOPHIL # (test code = BA#) 0.04 K/mm3 0.0-0.2 N NUCLEATED RBC # (test code = NRBC#) 0.00 K/mm3 0.0-0.1 N MANUAL DIFF REQUIRED (test code = MDIFF) NO, ONLY SCAN NEEDED DIFFERENTIAL [id number] 09:54:00* Test Item Value Reference Range Interpretation Comments STAIN ACCEPTABILITY (test code = STN ACCEPTABLE) MORPHOLOGY COMMENT (test code = MOC) PLATELET ESTIMATE (test code = PLTEST) PLATELET MORPHOLOGY (test code = PLTMORPH) CBC W/AUTO [id number] 09:53:00* Test Item Value Reference Range Interpretation Comments WHITE BLOOD CELL (test code = WBC) 7.5 K/mm3 4.5-12.5 N RED BLOOD CELL (test code = RBC) 4.20 mill/mm3 4.0-5.8 N HEMOGLOBIN (test code = HGB) 9.3 gram/dL 13.0-17.5 L HEMATOCRIT (test code = HCT) 32.1 % 42.0-52.0 L MEAN CELL VOLUME (test code = MCV) 76.4 fL 80-98 L MEAN CELL HGB (test code = MCH) 22.1 picogram 27.0-33.0 L MEAN CELL HGB CONCETRATION (test code = MCHC) 29.0 gram/dL 33.0-36. 0 L RED CELL DISTRIBUTION WIDTH (test code = RDW) 18.1 % 11.6-16. 2 H RED CELL DISTRIBUTION WIDTH SD (test code = RDW-SD) 49.3 fL 37 .0-51.0 N PLATELET COUNT (test code = PLT) 310 K/mm3 150-450 N MEAN PLATELET VOLUME (test code = MPV) 10.2 fL 6.7-11.0 N NEUTROPHIL % (test code = NT%) 60.9 % 39.0-69.0 N IMMATURE GRANULOCYTE % (test code = IG%) 0.1 % 0.0-5.0 N LYMPHOCYTE % (test code = LY%) 26.3 % 25.0-55.0 N MONOCYTE % (test code = MO%) 7.2 % 0.0-10.0 N EOSINOPHIL % (test code = EO%) 5.0 % 0.0-5.0 N BASOPHIL % (test code = BA%) 0.5 % 0.0-1.0 N NUCLEATED RBC % (test code = NRBC%) 0.0 % 0-0 N NEUTROPHIL # (test code = NT#) 4.58 K/mm3 1.8-7.7 N IMMATURE GRANULOCYTE # (test code = IG#) 0.01 x10 3/uL 0-0.03 N LYMPHOCYTE # (test code = LY#) 1.98 K/mm3 1.0-5.0 N MONOCYTE # (test code = MO#) 0.54 K/mm3 0-0.8 N EOSINOPHIL # (test code = EO#) 0.38 K/mm3 0.0-0.5 N BASOPHIL # (test code = BA#) 0.04 K/mm3 0.0-0.2 N NUCLEATED RBC # (test code = NRBC#) 0.00 K/mm3 0.0-0.1 N MANUAL DIFF REQUIRED (test code = MDIFF) NO, ONLY SCAN NEEDED DIFFERENTIAL [id number] 09:53:00* Test Item Value Reference Range Interpretation Comments STAIN ACCEPTABILITY (test code = STN ACCEPTABLE) CABOT RINGS (test code = CAB) MORPHOLOGY COMMENT (test code = MOC) PLATELET ESTIMATE (test code = PLTEST) PLATELET MORPHOLOGY (test code = PLTMORPH) [id number] 07:44:00* Test Item Value Reference Range Interpretation Comments GLUBED (test code = GLUBED) 97 mg/dL 74-106 N Performed by certified service station console operator at [facility] [id number] 21:00:00* Test Item Value Reference Range Interpretation Comments GLUBED (test code = GLUBED) 111 mg/dL 74-106 H Performed by certified service station console operator at [facility] [id number] 15:50:00* Test Item Value Reference Range Interpretation Comments GLUBED (test code = GLUBED) 121 mg/dL 74-106 H Performed by certified service station console operator at [facility] [id number] 12:06:00* Test Item Value Reference Range Interpretation Comments GLUBED (test code = GLUBED) 136 mg/dL 74-106 H Performed by certified service station console operator at [facility] [id number] 08:13:00* Test Item Value Reference Range Interpretation Comments GLUBED (test code = GLUBED) 133 mg/dL 74-106 H Performed by certified service station console operator at [facility] CBC W/AUTO [id number] 07:19:00* Test Item Value Reference Range Interpretation Comments WHITE BLOOD CELL (test code = WBC) 9.6 K/mm3 4.5-12.5 N RED BLOOD CELL (test code = RBC) 4.04 mill/mm3 4.0-5.8 N HEMOGLOBIN (test code = HGB) 8.9 gram/dL 13.0-17.5 L HEMATOCRIT (test code = HCT) 30.7 % 42.0-52.0 L MEAN CELL VOLUME (test code = MCV) 76.0 fL 80-98 L MEAN CELL HGB (test code = MCH) 22.0 picogram 27.0-33.0 L MEAN CELL HGB CONCETRATION (test code = MCHC) 29.0 gram/dL 33.0-36. 0 L RED CELL DISTRIBUTION WIDTH (test code = RDW) 17.8 % 11.6-16. 2 H RED CELL DISTRIBUTION WIDTH SD (test code = RDW-SD) 48.3 fL 37 .0-51.0 N PLATELET COUNT (test code = PLT) 322 K/mm3 150-450 N MEAN PLATELET VOLUME (test code = MPV) 10.4 fL 6.7-11.0 N NEUTROPHIL % (test code = NT%) 52.8 % 39.0-69.0 N IMMATURE GRANULOCYTE % (test code = IG%) 0.3 % 0.0-5.0 N LYMPHOCYTE % (test code = LY%) 35.7 % 25.0-55.0 N MONOCYTE % (test code = MO%) 6.8 % 0.0-10.0 N EOSINOPHIL % (test code = EO%) 3.9 % 0.0-5.0 N BASOPHIL % (test code = BA%) 0.5 % 0.0-1.0 N NUCLEATED RBC % (test code = NRBC%) 0.0 % 0-0 N NEUTROPHIL # (test code = NT#) 5.08 K/mm3 1.8-7.7 N IMMATURE GRANULOCYTE # (test code = IG#) 0.03 x10 3/uL 0-0.03 N LYMPHOCYTE # (test code = LY#) 3.43 K/mm3 1.0-5.0 N MONOCYTE # (test code = MO#) 0.65 K/mm3 0-0.8 N EOSINOPHIL # (test code = EO#) 0.37 K/mm3 0.0-0.5 N BASOPHIL # (test code = BA#) 0.05 K/mm3 0.0-0.2 N NUCLEATED RBC # (test code = NRBC#) 0.00 K/mm3 0.0-0.1 N MANUAL DIFF REQUIRED (test code = MDIFF) NO, ONLY SCAN NEEDED DIFFERENTIAL [id number] 07:19:00* Test Item Value Reference Range Interpretation Comments STAIN ACCEPTABILITY (test code = STN ACCEPTABLE) STAIN ACCEPTABLE HYPOCHROMIA (test code = HYPO) 1+ POIKILOCYTOSIS (test code = POIK) RARE ANISOCYTOSIS (test code = ANISO) 1+ MICROCYTOSIS (test code = MICR) 1+ ELLIPTOCYTES (test code = ELL) 2+ PLATELET ESTIMATE (test code = PLTEST) ADEQUATE PLATELET MORPHOLOGY (test code = PLTMORPH) NORMAL BASIC METABOLIC [id number] 07:05:00* Test Item Value Reference Range Interpretation Comments SODIUM (test code = NA) 141 mmol/L 136-145 N POTASSIUM (test code = K) 2.9 mmol/L 3.5-5.1 L Asia hitchcock called to [id number] V.LAB.OA 12/08/19 0705Critical results verified and read back by Nurse? Y CHLORIDE (test code = CL) 108.0 mmol/L 98-107 H CARBON DIOXIDE (test code = CO2) 25.0 mmol/L 21-32 N ANION GAP (test code = GAP) 10.9 10-20 N GLUCOSE (test code = GLU) 103 mg/dL 74-106 N BLOOD UREA NITROGEN (test code = BUN) 18 mg/dL 7-18 N GLOMERULAR FILTRATION RATE (test code = GFR) 51 mL/min >=60 Estimated GFR by using Modified MDRD formula.Chronic kidney disease is defined as either kidney damageor GFR <60 mL/min/1.73 m2 for >3 months. CREATININE (test code = CREAT) 1.40 mg/dL 0.7-1.3 H BUN/CREATININE RATIO (test code = BUN/CREA) 12.9 10-20 N CALCIUM (test code = CA) 9.6 mg/dL 8.5-10.1 N LIPID PROFILE (CORONARY RISK)2019-12-08 07:05:00* Test Item Value Reference Range Interpretation Comments TRIGLYCERIDES (test code = TRIG) 159 mg/dL 20-150 H CHOLESTEROL (test code = CHOL) 113 mg/dL 0-200 N CHOLESTEROL/HDL RATIO (test code = CHOLHDL) 3.0 RATIO 0-4.9 N RISK ASSOCIATED WITH CHOL/HDL RATIOS: Risk Male Female1/2 AVERAGE 3.43 3.27AVERAGE 4.97 4.442X AVERAGE 9.55 7.053X AVERAGE 23.39 11.04 REFERENCE VALUE IS RELATED TO RISK LEVELS ASRECOMMENDED BY THE PARISH. HEART, LUNG, AND BLOOD INST. HDL CHOLESTEROL (test code = HDL) 37 mg/dL 40-60 L LIPOPROTEIN LDL (test code = LDL) 57 mg/dL 100-129 L Reference Interval: mg/dL mmol/L Optimal <100 <2.6Near/above optimal 100-129 2.6- 3.3Borderline High 130-159 3.4-4.1High 160-189 4.1-4.9Very High >=190 >=4.9========= This LDL result is a direct measurement.========= [id number] 07:05:00* Test Item Value Reference Range Interpretation Comments MAGNESIUM (test code = MAG) 1.7 mg/dL 1.8-2.4 L BASIC METABOLIC [id number] 07:05:00* Test Item Value Reference Range Interpretation Comments SODIUM (test code = NA) 141 mmol/L 136-145 N POTASSIUM (test code = K) 2.9 mmol/L 3.5-5.1 L Re sults called to [id number] V.LAB. 12/08/19 0705Critical results verified and read back by Nurse? Y CHLORIDE (test code = CL) 108.0 mmol/L 98-107 H CARBON DIOXIDE (test code = CO2) 25.0 mmol/L 21-32 N ANION GAP (test code = GAP) 10.9 10-20 N GLUCOSE (test code = GLU) 103 mg/dL 74-106 N BLOOD UREA NITROGEN (test code = BUN) 18 mg/dL 7-18 N GLOMERULAR FILTRATION RATE (test code = GFR) 51 mL/min >=60 Estimated GFR by using Modified MDRD formula.Chronic kidney disease is defined as either kidney damageor GFR <60 mL/min/1.73 m2 for >3 months. CREATININE (test code = CREAT) 1.40 mg/dL 0.7-1.3 H BUN/CREATININE RATIO (test code = BUN/CREA) 12.9 10-20 N CALCIUM (test code = CA) 9.6 mg/dL 8.5-10.1 N LIPID PROFILE (CORONARY RISK)2019-12-08 07:05:00* Test Item Value Reference Range Interpretation Comments TRIGLYCERIDES (test code = TRIG) 159 mg/dL 20-150 H CHOLESTEROL (test code = CHOL) 113 mg/dL 0-200 N CHOLESTEROL/HDL RATIO (test code = CHOLHDL) 3.0 RATIO 0-4.9 N RISK ASSOCIATED WITH CHOL/HDL RATIOS: Risk Male Female1/2 AVERAGE 3.43 3.27AVERAGE 4.97 4.442X AVERAGE 9.55 7.053X AVERAGE 23.39 11.04 REFERENCE VALUE IS RELATED TO RISK LEVELS ASRECOMMENDED BY THE PARISH. HEART, LUNG, AND BLOOD INST. HDL CHOLESTEROL (test code = HDL) 37 mg/dL 40-60 L LIPOPROTEIN LDL (test code = LDL) 57 mg/dL 100-129 L Reference Interval: mg/dL mmol/L Optimal <100 <2.6Near/above optimal 100-129 2.6- 3.3Borderline High 130-159 3.4-4.1High 160-189 4.1-4.9Very High >=190 >=4.9========= This LDL result is a direct measurement.========= [id number] 07:05:00* Test Item Value Reference Range Interpretation Comments MAGNESIUM (test code = MAG) 1.7 mg/dL 1.8-2.4 L CBC W/AUTO [id number] 06:15:00* Test Item Value Reference Range Interpretation Comments WHITE BLOOD CELL (test code = WBC) 9.6 K/mm3 4.5-12.5 N RED BLOOD CELL (test code = RBC) 4.04 mill/mm3 4.0-5.8 N HEMOGLOBIN (test code = HGB) 8.9 gram/dL 13.0-17.5 L HEMATOCRIT (test code = HCT) 30.7 % 42.0-52.0 L MEAN CELL VOLUME (test code = MCV) 76.0 fL 80-98 L MEAN CELL HGB (test code = MCH) 22.0 picogram 27.0-33.0 L MEAN CELL HGB CONCETRATION (test code = MCHC) 29.0 gram/dL 33.0-36. 0 L RED CELL DISTRIBUTION WIDTH (test code = RDW) 17.8 % 11.6-16. 2 H RED CELL DISTRIBUTION WIDTH SD (test code = RDW-SD) 48.3 fL 37 .0-51.0 N PLATELET COUNT (test code = PLT) 322 K/mm3 150-450 N MEAN PLATELET VOLUME (test code = MPV) 10.4 fL 6.7-11.0 N NEUTROPHIL % (test code = NT%) 52.8 % 39.0-69.0 N IMMATURE GRANULOCYTE % (test code = IG%) 0.3 % 0.0-5.0 N LYMPHOCYTE % (test code = LY%) 35.7 % 25.0-55.0 N MONOCYTE % (test code = MO%) 6.8 % 0.0-10.0 N EOSINOPHIL % (test code = EO%) 3.9 % 0.0-5.0 N BASOPHIL % (test code = BA%) 0.5 % 0.0-1.0 N NUCLEATED RBC % (test code = NRBC%) 0.0 % 0-0 N NEUTROPHIL # (test code = NT#) 5.08 K/mm3 1.8-7.7 N IMMATURE GRANULOCYTE # (test code = IG#) 0.03 x10 3/uL 0-0.03 N LYMPHOCYTE # (test code = LY#) 3.43 K/mm3 1.0-5.0 N MONOCYTE # (test code = MO#) 0.65 K/mm3 0-0.8 N EOSINOPHIL # (test code = EO#) 0.37 K/mm3 0.0-0.5 N BASOPHIL # (test code = BA#) 0.05 K/mm3 0.0-0.2 N NUCLEATED RBC # (test code = NRBC#) 0.00 K/mm3 0.0-0.1 N MANUAL DIFF REQUIRED (test code = MDIFF) NO, ONLY SCAN NEEDED DIFFERENTIAL [id number] 06:15:00* Test Item Value Reference Range Interpretation Comments STAIN ACCEPTABILITY (test code = STN ACCEPTABLE) CABOT RINGS (test code = CAB) MORPHOLOGY COMMENT (test code = MOC) PLATELET ESTIMATE (test code = PLTEST) PLATELET MORPHOLOGY (test code = PLTMORPH) CBC W/AUTO [id number] 06:15:00* Test Item Value Reference Range Interpretation Comments WHITE BLOOD CELL (test code = WBC) 9.6 K/mm3 4.5-12.5 N RED BLOOD CELL (test code = RBC) 4.04 mill/mm3 4.0-5.8 N HEMOGLOBIN (test code = HGB) 8.9 gram/dL 13.0-17.5 L HEMATOCRIT (test code = HCT) 30.7 % 42.0-52.0 L MEAN CELL VOLUME (test code = MCV) 76.0 fL 80-98 L MEAN CELL HGB (test code = MCH) 22.0 picogram 27.0-33.0 L MEAN CELL HGB CONCETRATION (test code = MCHC) 29.0 gram/dL 33.0-36. 0 L RED CELL DISTRIBUTION WIDTH (test code = RDW) 17.8 % 11.6-16. 2 H RED CELL DISTRIBUTION WIDTH SD (test code = RDW-SD) 48.3 fL 37 .0-51.0 N PLATELET COUNT (test code = PLT) 322 K/mm3 150-450 N MEAN PLATELET VOLUME (test code = MPV) 10.4 fL 6.7-11.0 N NEUTROPHIL % (test code = NT%) 52.8 % 39.0-69.0 N IMMATURE GRANULOCYTE % (test code = IG%) 0.3 % 0.0-5.0 N LYMPHOCYTE % (test code = LY%) 35.7 % 25.0-55.0 N MONOCYTE % (test code = MO%) 6.8 % 0.0-10.0 N EOSINOPHIL % (test code = EO%) 3.9 % 0.0-5.0 N BASOPHIL % (test code = BA%) 0.5 % 0.0-1.0 N NUCLEATED RBC % (test code = NRBC%) 0.0 % 0-0 N NEUTROPHIL # (test code = NT#) 5.08 K/mm3 1.8-7.7 N IMMATURE GRANULOCYTE # (test code = IG#) 0.03 x10 3/uL 0-0.03 N LYMPHOCYTE # (test code = LY#) 3.43 K/mm3 1.0-5.0 N MONOCYTE # (test code = MO#) 0.65 K/mm3 0-0.8 N EOSINOPHIL # (test code = EO#) 0.37 K/mm3 0.0-0.5 N BASOPHIL # (test code = BA#) 0.05 K/mm3 0.0-0.2 N NUCLEATED RBC # (test code = NRBC#) 0.00 K/mm3 0.0-0.1 N MANUAL DIFF REQUIRED (test code = MDIFF) NO, ONLY SCAN NEEDED DIFFERENTIAL [id number] 06:15:00* Test Item Value Reference Range Interpretation Comments STAIN ACCEPTABILITY (test code = STN ACCEPTABLE) MORPHOLOGY COMMENT (test code = MOC) PLATELET ESTIMATE (test code = PLTEST) PLATELET MORPHOLOGY (test code = PLTMORPH) CBC W/AUTO [id number] 06:14:00* Test Item Value Reference Range Interpretation Comments WHITE BLOOD CELL (test code = WBC) 9.6 K/mm3 4.5-12.5 N RED BLOOD CELL (test code = RBC) 4.04 mill/mm3 4.0-5.8 N HEMOGLOBIN (test code = HGB) 8.9 gram/dL 13.0-17.5 L HEMATOCRIT (test code = HCT) 30.7 % 42.0-52.0 L MEAN CELL VOLUME (test code = MCV) 76.0 fL 80-98 L MEAN CELL HGB (test code = MCH) 22.0 picogram 27.0-33.0 L MEAN CELL HGB CONCETRATION (test code = MCHC) 29.0 gram/dL 33.0-36. 0 L RED CELL DISTRIBUTION WIDTH (test code = RDW) 17.8 % 11.6-16. 2 H RED CELL DISTRIBUTION WIDTH SD (test code = RDW-SD) 48.3 fL 37 .0-51.0 N PLATELET COUNT (test code = PLT) 322 K/mm3 150-450 N MEAN PLATELET VOLUME (test code = MPV) 10.4 fL 6.7-11.0 N NEUTROPHIL % (test code = NT%) 52.8 % 39.0-69.0 N IMMATURE GRANULOCYTE % (test code = IG%) 0.3 % 0.0-5.0 N LYMPHOCYTE % (test code = LY%) 35.7 % 25.0-55.0 N MONOCYTE % (test code = MO%) 6.8 % 0.0-10.0 N EOSINOPHIL % (test code = EO%) 3.9 % 0.0-5.0 N BASOPHIL % (test code = BA%) 0.5 % 0.0-1.0 N NUCLEATED RBC % (test code = NRBC%) 0.0 % 0-0 N NEUTROPHIL # (test code = NT#) 5.08 K/mm3 1.8-7.7 N IMMATURE GRANULOCYTE # (test code = IG#) 0.03 x10 3/uL 0-0.03 N LYMPHOCYTE # (test code = LY#) 3.43 K/mm3 1.0-5.0 N MONOCYTE # (test code = MO#) 0.65 K/mm3 0-0.8 N EOSINOPHIL # (test code = EO#) 0.37 K/mm3 0.0-0.5 N BASOPHIL # (test code = BA#) 0.05 K/mm3 0.0-0.2 N NUCLEATED RBC # (test code = NRBC#) 0.00 K/mm3 0.0-0.1 N MANUAL DIFF REQUIRED (test code = MDIFF) NO, ONLY SCAN NEEDED DIFFERENTIAL [id number] 06:14:00* Test Item Value Reference Range Interpretation Comments STAIN ACCEPTABILITY (test code = STN ACCEPTABLE) CABOT RINGS (test code = CAB) MORPHOLOGY COMMENT (test code = MOC) PLATELET ESTIMATE (test code = PLTEST) PLATELET MORPHOLOGY (test code = PLTMORPH) CBC W/AUTO [id number] 06:14:00* Test Item Value Reference Range Interpretation Comments WHITE BLOOD CELL (test code = WBC) 9.6 K/mm3 4.5-12.5 N RED BLOOD CELL (test code = RBC) 4.04 mill/mm3 4.0-5.8 N HEMOGLOBIN (test code = HGB) 8.9 gram/dL 13.0-17.5 L HEMATOCRIT (test code = HCT) 30.7 % 42.0-52.0 L MEAN CELL VOLUME (test code = MCV) 76.0 fL 80-98 L MEAN CELL HGB (test code = MCH) 22.0 picogram 27.0-33.0 L MEAN CELL HGB CONCETRATION (test code = MCHC) 29.0 gram/dL 33.0-36. 0 L RED CELL DISTRIBUTION WIDTH (test code = RDW) 17.8 % 11.6-16. 2 H RED CELL DISTRIBUTION WIDTH SD (test code = RDW-SD) 48.3 fL 37 .0-51.0 N PLATELET COUNT (test code = PLT) 322 K/mm3 150-450 N MEAN PLATELET VOLUME (test code = MPV) 10.4 fL 6.7-11.0 N NEUTROPHIL % (test code = NT%) 52.8 % 39.0-69.0 N IMMATURE GRANULOCYTE % (test code = IG%) 0.3 % 0.0-5.0 N LYMPHOCYTE % (test code = LY%) 35.7 % 25.0-55.0 N MONOCYTE % (test code = MO%) 6.8 % 0.0-10.0 N EOSINOPHIL % (test code = EO%) 3.9 % 0.0-5.0 N BASOPHIL % (test code = BA%) 0.5 % 0.0-1.0 N NUCLEATED RBC % (test code = NRBC%) 0.0 % 0-0 N NEUTROPHIL # (test code = NT#) 5.08 K/mm3 1.8-7.7 N IMMATURE GRANULOCYTE # (test code = IG#) 0.03 x10 3/uL 0-0.03 N LYMPHOCYTE # (test code = LY#) 3.43 K/mm3 1.0-5.0 N MONOCYTE # (test code = MO#) 0.65 K/mm3 0-0.8 N EOSINOPHIL # (test code = EO#) 0.37 K/mm3 0.0-0.5 N BASOPHIL # (test code = BA#) 0.05 K/mm3 0.0-0.2 N NUCLEATED RBC # (test code = NRBC#) 0.00 K/mm3 0.0-0.1 N MANUAL DIFF REQUIRED (test code = MDIFF) NO, ONLY SCAN NEEDED DIFFERENTIAL [id number] 06:14:00* Test Item Value Reference Range Interpretation Comments STAIN ACCEPTABILITY (test code = STN ACCEPTABLE) CABOT RINGS (test code = CAB) MORPHOLOGY COMMENT (test code = MOC) PLATELET ESTIMATE (test code = PLTEST) PLATELET MORPHOLOGY (test code = PLTMORPH) [id number] 20:22:00* Test Item Value Reference Range Interpretation Comments GLUBED (test code = GLUBED) 111 mg/dL 74-106 H Performed by certified service station console operator at [facility] THYROID PROFILE [id number] 18:13:00* Test Item Value Reference Range Interpretation Comments T3 UPTAKE (test code = T3UP) 37.0 % 30.0-40.0 N T4 (THYROXINE) (test code = T4) 9.9 ug/dL 4.5-13.9 N T7 (FREE THYROXINE INDEX) (test code = T7) 3.66 FTI 1.3-5.1 N THYROID STIMULATING HORMONE (test code = TSH) 0.158 uIU/mL 0.36-3.7 4 L TSH REFERENCE RANGES: EUTHYROID: 0.35 - 4.3 mIU/mL HYPO : > 5.5 mIU/mL HYPER : < 0.35 mIU/mL NO JUNIOR. PT FROM [facility] 12/07/19 [id number] 18:11:00* Test Item Value Reference Range Interpretation Comments GLYCOSYLATED HEMOGLOBIN (HA1C) (test code = GLYHGB) 6.3 % HbA1 SUGGESTED DIAGNOSIS: HbA1C (%) Diabetic >6.4Prediabetes 5.7 - 6.4Normal <5.7 ESTIMATED AVERAGE GLUCOSE (test code = EAG) 134 MG/DL NO JUNIOR. PT FROM [facility] 12/07/19 [id number] 16:29:00* Test Item Value Reference Range Interpretation Comments GLUBED (test code = GLUBED) 130 mg/dL 74-106 H Performed by certified service station console operator at [facility] [id number] 14:19:00* Test Item Value Reference Range Interpretation Comments TROPONIN-I (test code = TROPI) 0.03 ng/mL 0.00-0.056 N COMMENTS TO [employer]: COLLECT 3 HOURS AFTER PREVIOUS SAMPLEURINALYSIS [id number] 14:18:00* Test Item Value Reference Range Interpretation Comments UA COLOR (test code = COLU) YELLOW YELLOW UA APPEARANCE (test code = APPU) CLEAR CLEAR UA GLUCOSE DIPSTICK (test code = DGLUU) NEGATIVE mg/dL NEGATIVE UA BILIRUBIN DIPSTICK (test code = BILU) NEGATIVE NEGATIVE UA KETONE DIPSTICK (test code = KETU) NEGATIVE mg/dL NEGATIVE UA SPECIFIC GRAVITY (test code = SGU) 1.015 1.001-1.035 UA BLOOD DIPSTICK (test code = ROSALINA) N Jaguar/uL NEGATIVE UA PH DIPSTICK (test code = BRODY) 5.0 5.0-8.0 UA PROTEIN DIPSTICK (test code = PROU) TRACE (15) mg/dL Neg-15 UA UROBILINIOGEN DIPSTICK (test code = URO) NORMAL mg/dL 0.0-0.2 UA NITRITE DIPSTICK (test code = JONATHAN) NEGATIVE NEGATIVE UA LEUKOCYTE ESTERASE DIPSTICK (test code = LEUU) 25 Imelda/uL (Tra ce) uL NEGATIVE A UA WBC (test code = WBCU) 10-20 per HPF 0-5 A UA RBC (test code = RBCU) 0-3 per HPF 0-5 UA EPITHELIAL CELLS (test code = EPIU) Rare (0-1/hpf) per HPF Few UA BACTERIA (test code = BACU) FEW per HPF NONE Urine Source? Clean CatchDRUGS OF ABUSE SCREEN [id number] 14:18:00* Test Item Value Reference Range Interpretation Comments URN COCAINE (test code = COCAURN) NEGATIVE NEGATIVE URN CANNABINOIDS (test code = CANNABURN) NEGATIVE NEGATIVE URN AMPHETAMINE (test code = AMPHETURN) NEGATIVE NEGATIVE URN BARBITURATE (test code = BARBITURN) NEGATIVE NEGATIVE URN BENZODIAZEPINE (test code = BENZOURN) POSITIVE NEGATIVE A URN OPIATES (test code = OPIATURN) NEGATIVE NEGATIVE URN PHENCYCLIDINE (PCP) (test code = PHENCURN) NEGATIVE NEGATIV E Urine Source? Clean CatchURINALYSIS [id number] 12:02:00* Test Item Value Reference Range Interpretation Comments UA COLOR (test code = COLU) YELLOW YELLOW UA APPEARANCE (test code = APPU) CLEAR CLEAR UA GLUCOSE DIPSTICK (test code = DGLUU) NEGATIVE mg/dL NEGATIVE UA BILIRUBIN DIPSTICK (test code = BILU) NEGATIVE NEGATIVE UA KETONE DIPSTICK (test code = KETU) NEGATIVE mg/dL NEGATIVE UA SPECIFIC GRAVITY (test code = SGU) 1.015 1.001-1.035 UA BLOOD DIPSTICK (test code = ROSALINA) N Jaguar/uL NEGATIVE UA PH DIPSTICK (test code = BRODY) 5.0 5.0-8.0 UA PROTEIN DIPSTICK (test code = PROU) TRACE (15) mg/dL Neg-15 UA UROBILINIOGEN DIPSTICK (test code = URO) NORMAL mg/dL 0.0-0.2 UA NITRITE DIPSTICK (test code = JONATHAN) NEGATIVE NEGATIVE UA LEUKOCYTE ESTERASE DIPSTICK (test code = LEUU) 25 Imelda/uL (Tra ce) uL NEGATIVE A UA WBC (test code = WBCU) 10-20 per HPF 0-5 A UA RBC (test code = RBCU) 0-3 per HPF 0-5 UA EPITHELIAL CELLS (test code = EPIU) Rare (0-1/hpf) per HPF Few UA BACTERIA (test code = BACU) FEW per HPF NONE Urine Source? Clean CatchDRUGS OF ABUSE SCREEN [id number] 12:02:00* Test Item Value Reference Range Interpretation Comments URN COCAINE (test code = COCAURN) NEGATIVE URN CANNABINOIDS (test code = CANNABURN) NEGATIVE URN AMPHETAMINE (test code = AMPHETURN) NEGATIVE URN BARBITURATE (test code = BARBITURN) NEGATIVE URN BENZODIAZEPINE (test code = BENZOURN) NEGATIVE URN OPIATES (test code = OPIATURN) NEGATIVE URN PHENCYCLIDINE (PCP) (test code = PHENCURN) NEGATIV E Urine Source? Clean [id number] 11:25:00* Test Item Value Reference Range Interpretation Comments MAGNESIUM (test code = MAG) 1.4 mg/dL 1.6-2.3 L BASIC METABOLIC [id number] 11:17:00* Test Item Value Reference Range Interpretation Comments SODIUM (test code = NA) 140 mmol/L 136-145 N POTASSIUM (test code = K) 2.8 mmol/L 3.5-5.1 [facility] called to JOAO ESCALERA by V.LAB.[facility] 12/07/19 1104Critical results verified and read back by Nurse? Y CHLORIDE (test code = CL) 101 mmol/L 101-109 N CARBON DIOXIDE (test code = CO2) 27.6 mmol/L 21-32 N ANION GAP (test code = GAP) 14 mmol/L 10-20 N GLUCOSE (test code = GLU) 120 mg/dL 74-106 H BLOOD UREA NITROGEN (test code = BUN) 25 mg/dL 3-21 H GLOMERULAR FILTRATION RATE (test code = GFR) 36 mL/min >=60 Estimated GFR by using Modified MDRD formula.Chronic kidney disease is defined as either kidney damageor GFR <60 mL/min/1.73 m2 for >3 months. CREATININE (test code = CREAT) 1.88 mg/dL 0.55-1.3 H BUN/CREATININE RATIO (test code = BUN/CREA) 13.3 10-20 N CALCIUM (test code = CA) 10.6 mg/dL 8.4-10.2 H HEPATIC FUNCTION [id number] 11:17:00* Test Item Value Reference Range Interpretation Comments TOTAL PROTEIN (test code = PROT) 8.3 g/dL 6.5-8.4 N ALBUMIN (test code = ALB) 3.8 g/dL 3.4-4.8 N GLOBULIN (test code = GLOB) 4.5 G/DL 1-10 N ALBUMIN/GLOBULIN RATIO (test code = A/G) 0.84 RATIO 0.75-1.50 N BILIRUBIN TOTAL (test code = BILT) 0.40 mg/dL 0.0-1.0 N BILIRUBIN DIRECT (test code = BILD) 0.20 mg/dL 0.0-0.30 N SGOT/AST (test code = AST) 29 U/L 6-32 N SGPT/ALT (test code = ALT) 19 U/L 12-78 N N ote: Change in REFERENCE RANGE due to new reagent method. ALKALINE PHOSPHATASE TOTAL (test code = ALKP) 92 U/L 38-126 N CREATINE KINASE (CK)2019-12-07 11:17:00* Test Item Value Reference Range Interpretation Comments CREATINE KINASE (CK) (test code = CK) 148 U/L 39-308 N THYROID STIMULATING [id number] 11:17:00* Test Item Value Reference Range Interpretation Comments THYROID STIMULATING HORMONE (test code = TSH) 0.33 uIU/mL 0.36-3.7 4 L TSH REFERENCE RANGES: EUTHYROID: 0.4 - 4.3 HYPO : >7.6 HYPER : <0.1 [id number] 11:17:00* Test Item Value Reference Range Interpretation Comments TROPONIN-I (test code = TROPI) 0.02 ng/mL 0.00-0.056 N [id number] 11:17:00* Test Item Value Reference Range Interpretation Comments ACETAMINOPHEN (test code = ACET) < 10 mcg/mL 0-30 N A RANGE OF 10-30 UG/ML IS A THERAPEUTIC RANGE. TOXIC CONCENTRATIONS: >150 UG/ML AFTER 4 HOURS OF INGESTION > 50 UG/ML AFTER 12 HOURS OF INGESTION [id number] 11:17:00* Test Item Value Reference Range Interpretation Comments SALICYLATE (test code = KATELYN) 2.5 mg/dL 2.8-20.0 L [id number] 11:17:00* Test Item Value Reference Range Interpretation Comments ALCOHOL (test code = ALC) 3 mg/dL 0.0-3.0 N -- INTERPRETIVE DATA NOTE: POSITIVE SCREENING RESULTS SHOULD BE CONSIDERED PRESUMPTIVE.WHEN COLLECTED FOR MEDICAL PURPOSES ONLY. SPECIMEN WILL NOTBE COLLECTED BY CHAIN OF CUSTODY.IF A CONFIRMATION OF POSITIVE RESULTS IS DESIRED, ACONFIRMATION TEST MUST BE REQUESTED BY THE PHYSICIAN AT ANADDITIONAL CHARGE TO THE PATIENT. - XR CHEST 1 [id number] 11:05:00 Name: SAMMI MEANS [facility] : 1950 Age/S:69 /M [address] [facility] Unit#:[id number] Loc: [place] [address] Phys: Nelson Sher MD Dis Date: PHONE #: [phone] Status: [facility] FAX #: [phone] Exam Date: 12/07/2019 Reason: COUGH EXAMS: CPT CODE: [id number] XR CHEST 1 V [id number] REASON FOR EXAM: COUGH Exam Order Date: 12/07/2019 10:20 AM Ordering M.D.: Nelson Sher MD PROCEDURE: - XR CHEST 1 V COMPARISON: Chest x-ray December 29, 2015 FINDINGS: The lungs are clear. There is no pleural effusion or pneumothorax. Pulmonary vascularity is within normal limits. Cardiomediastinal silhouette is normal in size for technique. The mediastinal contours are within normal limits. Degenerative changes are present in the thoracic spine. Prior rotator cuff repair of the left shoulder. The visualized upper abdomen is within normal limits. IMPRESSION: No acute cardiopulmonary process. Location: [facility] at 1105 Reported and signed by: Pio Valera MD CC: Nelson Sher MD Technologist: Francy Swenson Trnscrpt Data: 12/07/2019 ([id number]) [id number] Orig Print D/T: S: 12/07/2019 ([id number]) PAGE 1 Signed Report BASIC METABOLIC [id number] 11:04:00* Test Item Value Reference Range Interpretation Comments SODIUM (test code = NA) 140 mmol/L 136-145 N POTASSIUM (test code = K) 2.8 mmol/L 3.5-5.1 LL Re sults called to JOAO ESCALERA by V.LAB.A 12/07/19 1104Critical results verified and read back by Nurse? Y CHLORIDE (test code = CL) 101 mmol/L 101-109 N CARBON DIOXIDE (test code = CO2) 27.6 mmol/L 21-32 N ANION GAP (test code = GAP) 14 mmol/L 10-20 N GLUCOSE (test code = GLU) 120 mg/dL 74-106 H BLOOD UREA NITROGEN (test code = BUN) 25 mg/dL 3-21 H GLOMERULAR FILTRATION RATE (test code = GFR) 36 mL/min >=60 Estimated GFR by using Modified MDRD formula.Chronic kidney disease is defined as either kidney damageor GFR <60 mL/min/1.73 m2 for >3 months. CREATININE (test code = CREAT) 1.88 mg/dL 0.55-1.3 H BUN/CREATININE RATIO (test code = BUN/CREA) 13.3 10-20 N CALCIUM (test code = CA) 10.6 mg/dL 8.4-10.2 H HEPATIC FUNCTION [id number] 11:04:00* Test Item Value Reference Range Interpretation Comments TOTAL PROTEIN (test code = PROT) gram/dL 6.4-8.2 ALBUMIN (test code = ALB) g/dL 3.4-5.0 GLOBULIN (test code = GLOB) g/dL 2.7-4.2 ALBUMIN/GLOBULIN RATIO (test code = A/G) 0.75-1.50 BILIRUBIN TOTAL (test code = BILT) mg/dL 0.2-1.2 BILIRUBIN DIRECT (test code = BILD) mg/dL 0.0-0.20 SGOT/AST (test code = AST) IUnit/L 15-37 SGPT/ALT (test code = ALT) U/L 10-69 ALKALINE PHOSPHATASE TOTAL (test code = ALKP) IUnit/L 45-117 CREATINE KINASE (CK)2019-12-07 11:04:00* Test Item Value Reference Range Interpretation Comments CREATINE KINASE (CK) (test code = CK) IUnit/L 26-208 THYROID STIMULATING [id number] 11:04:00* Test Item Value Reference Range Interpretation Comments THYROID STIMULATING HORMONE (test code = TSH) uIU/mL 0.36-3.7 4 [id number] 11:04:00* Test Item Value Reference Range Interpretation Comments TROPONIN-I (test code = TROPI) ng/mL 0-0.045 [id number] 11:04:00* Test Item Value Reference Range Interpretation Comments ACETAMINOPHEN (test code = ACET) mcg/mL 10-30 [id number] 11:04:00* Test Item Value Reference Range Interpretation Comments SALICYLATE (test code = KATELYN) mg/dL 2.8-20.0 [id number] 11:04:00* Test Item Value Reference Range Interpretation Comments ALCOHOL (test code = ALC) mg/dL 0.0-3.0 CBC W/O [id number] 10:50:00* Test Item Value Reference Range Interpretation Comments WHITE BLOOD CELL (test code = WBC) 8.0 K/mm3 4.5-12.5 N RED BLOOD CELL (test code = RBC) 4.14 mill/mm3 4.0-5.8 N HEMOGLOBIN (test code = HGB) 9.3 gram/dL 13.0-17.5 L HEMATOCRIT (test code = HCT) 30.6 % 42.0-52.0 L MEAN CELL VOLUME (test code = MCV) 73.9 fL 80-98 L MEAN CELL HGB (test code = MCH) 22.5 picogram 27.0-33.0 L MEAN CELL HGB CONCETRATION (test code = MCHC) 30.4 gram/dL 33.0-36. 0 L RED CELL DISTRIBUTION WIDTH (test code = RDW) 17.6 % 11.6-16. 2 H RED CELL DISTRIBUTION WIDTH SD (test code = RDW-SD) 48.1 fL 37 .0-51.0 N PLATELET COUNT (test code = PLT) 368 K/mm3 150-450 N MEAN PLATELET VOLUME (test code = MPV) 10.1 fL 6.7-11.0 N
[2020-02-15] MEDS ORDERED: ONDANSETRON HCL INJ 2MG/ML 2ML 2 MG/ML VIAL IV PRN (22:45)
[2020-02-16] VITALS (9 sets, daily range): BP systolic 138–176; BP diastolic 65–86
--- NOTE | 2020-02-16 00:30 | NUR ---
RECEIVED PATIENT FROM ER AOX4, NO SIGNS OF DISTRESS NOTED. NASAL CANNULA IS INTACT AND RUNNING AT 3 LITERS AND PATIENT VOICES PAIN AT A LEVEL OF 9 AND HAS LIDOCAINE PATCH INTACT. PATIENT AWARE OF BLOOD TO BE GIVEN AT A LATER TIME AND CONSENT WAS PREVIOUSLY SIGNED. PATIENT HAS STRAIGHT CANE AT BEDSIDE FOR AMBULATION. BED IS IN LOWEST POSITION, BOTH SIDE RAILS ARE UP, CALL LIGHT IS WITHIN EASY REACH, WILL CONTINUE TO MONITOR.
[2020-02-16] MEDS ORDERED: MORPHINE SULFATE INJ 4 MG/ML INJ 1ML IV PRN (01:30)
[2020-02-16] MEDS: MORPHINE SULFATE 2 MG/ML SYR 1ML IV PRN ×2 (02:27→06:46)
[2020-02-16] MEDS ORDERED: SODIUM CHLORIDE 0.9% 250ML 250 ML ONE ×2 (03:07→15:15)
--- NOTE | 2020-02-16 03:50 | NUR ---
UNIT OF BLOOD STARTED FOR PATIENT AT 0320, NO SIGNS OF DISTRESS, FEVER , OR OTHER REACTIONS NOTED. VITALS WERE TAKEN TWICE WITHIN THE TIME PERIOD, WILL CONTINUE TO MONITOR.
--- NOTE | 2020-02-16 07:08 | NUR ---
BEDSIDE SHIFT REPORT RECEIVED FROM PM NURSE. PT AWAKE, ALERT, ANSWERS QUESTIONS APPROPRIATELY, NO C/O PAIN AT THIS TIME, NO SIGNS OF DISTRESS, IN STABLE CONDITION. WILL CONTINUE TO MONITOR.
[2020-02-16 08:43] LABS: BASOPHILS % 0.3 % (0.0-1.0); EOSINOPHILS # (AUTO) 0.4 (0.0-0.4); EOSINOPHILS % 5.4 % (0.0-6.0); HEMATOCRIT 25.1 % (38.2-49.6); LYMPHOCYTES # (AUTO) 2.6 (1.0-3.2); LYMPHOCYTES % 33.3 % (18.0-39.1); MEAN CORPUSCULAR HEMOGLOBIN 21.7 pg (28-32); MEAN CORPUSCULAR HGB CONC 27.9 g/dL (31-35); MEAN CORPUSCULAR VOLUME 77.7 fL (81-99); MONOCYTES # (AUTO) 0.6 (0.2-0.8); MONOCYTES % 7.6 % (4.4-11.3); NEUTROPHILS # (AUTO) 4.1 (2.1-6.9); NEUTROPHILS % 53.1 % (38.7-80.0); PLATELET COUNT 275 x10e3/uL (140-360); RED BLOOD COUNT 3.23 x10e6/uL (4.3-5.7); RED CELL DISTRIBUTION WIDTH 18.6 % (11.7-14.4)
[2020-02-16 08:51] LABS: BLOOD UREA NITROGEN 18 mg/dL (7-26); BUN/CREATININE RATIO 17 (6-25); CALCIUM 10.1 mg/dL (8.4-10.2); CARBON DIOXIDE 26 mmol/L (22-29); CHLORIDE 106 mmol/L (98-107); CREATININE, SERUM 1.07 mg/dL (0.72-1.25); EST GLOMERULAR FILTRATION RATE > 60 ML/MIN (60-); GLUCOSE 115 mg/dL (74-118); SODIUM 140 mmol/L (136-145)
[2020-02-16] MEDS ORDERED: LIDOCAINE 4% PATCH TP SCH (09:00)
[2020-02-16 09:10] LABS: CREATINE KINASE MB 2.2 ng/mL (0-5.0)
[2020-02-16] MEDS: PANTOPRAZOLE 40 MG 10ML VIAL IV SCH ×2 (09:57→17:57)
[2020-02-16] MEDS ORDERED: METOPROLOL SUCCINATE 50 MG TAB XL PO SCH (10:30)
[2020-02-16 10:58] LABS: ANISOCYTOSIS MODERATE; HYPOCHROMASIA MODERATE; MICROCYTOSIS SLIGHT; PLATELET ESTIMATE ADEQUATE; PLATELET MORPHOLOGY COMMENT NORMAL; RBC MORPHOLOGY COMMENT ABNORMAL
[2020-02-16 10:59] LABS: ELLIPTOCYTE, RBC SLIGHT; POLYCHROMASIA FEW
[2020-02-16] MEDS ORDERED: SODIUM CHLORIDE 0.9% 250ML 250 ML IV ONE (11:15)
[2020-02-16] MEDS ORDERED: IRON SUCROSE 100 MG in SODIUM CHLORIDE 0.9% 100 ML 100 ML IV ONE (11:30)
[2020-02-16] MEDS: METHADONE HCL 10 MG TAB PO SCH ×2 (11:39→14:25)
[2020-02-16] MEDS ORDERED: DOCUSATE SODIU100 MG PO (11:45)
[2020-02-16] MEDS ORDERED: ASCORBIC ACID500 MG PO (11:45)
[2020-02-16] MEDS ORDERED: LIDOCAINE1 EACH TOP (11:45)
[2020-02-16] MEDS ORDERED: FERROUS SULFAT325 M1 PO (11:45)
[2020-02-16] MEDS ORDERED: DEXTROSE 50% SYRINGE 50 ML IV PRN (12:00)
[2020-02-16] MEDS ORDERED: FUROSEMIDE INJ 10 MG/ML 2 ML VIAL IV SCH (12:00)
[2020-02-16] MEDS ORDERED: BISACODYL 5 MG TAB EC PO PRN (12:00)
[2020-02-16] MEDS ORDERED: BACLOFEN10 MG PO (12:06)
--- NOTE | 2020-02-16 12:08 | NUR ---
pt c/o pain to IV site; small red raised rash noted to right forearm. IV discontinued. notified KEV Santos. will start new IV and give dose of Benadryl.
[2020-02-16] MEDS ORDERED: DIPHENHYDRAMINE HCL INJ 50 MG/ML VIAL IV PRN (12:15)
--- NOTE | 2020-02-16 12:33 | NUR ---
ORDERS REC'D FOR HOME HEALTH SKILLED NURSE EVAL AND HOME PT/OT EVAL AND TREAT CM MET WITH PT IN ROOM GAVE PT MY BUSINESS CARD HE STATES HE ALREADY HAS HOME HEALTH AND A PHYSICAL THERAPIST COMING TO HIS HOUSE STATES IT WAS SET UP BY [facility] AND THEY CAME OUT LAST WEEK SAYS HE DOESN'T REMEMBER THE NAME OF THE COMPANY BUT WILL CALL THEM TO RESUME SERVICES WHEN HE GETS HOME ASKED HIM TO CALL ME IF HE HAS ANY QUESTIONS OR CONCERNS WHEN HE GETS HOME AND HE SAID HE WOULD NOTIFIED CAMERON MALLORY NP OF [facility]OVE
--- NOTE | 2020-02-16 12:50 | NUR ---
unable to obtain IV access at this time after two attempts. will have another RN attempt IV placement.
--- NOTE | 2020-02-16 13:25 | NUR ---
pt having echocardiogram at this time. pt awake, alert, in stable condition.
--- NOTE | 2020-02-16 15:20 | NUR ---
STARTING BLOOD TRANSFUSION. IV PATENT, PT IN STABLE CONDITION.
[2020-02-16] MEDS ORDERED: INSULIN LISPRO 100 UNIT/1 ML 3ML VIAL SQ SCH (16:30)
[2020-02-16 16:50] LABS: CREATINE KINASE MB 2.3 ng/mL (0-5.0)
[2020-02-16] MEDS ORDERED: DOCUSATE SODIUM 100 MG CAP PO SCH (17:00)
[2020-02-16] MEDS ORDERED: ASCORBIC ACID 500 MG TAB PO SCH (17:00)
[2020-02-16] MEDS ORDERED: SUCRALFATE 1 GM TAB PO SCH (17:00)
[2020-02-16] MEDS ORDERED: TAMSULOSIN HCL 0.4 MG CAP PO SCH (17:30)
[2020-02-16 17:45] LABS: HEMATOCRIT 28.1 % (38.2-49.6); HEMOGLOBIN 8.1 g/dL (14.0-18.0)
--- NOTE | 2020-02-16 20:35 | NUR ---
PATIENT DISCHARGED AT THIS TIME. IV DISCONTINUED AT 1954, CATHETER TIP INTACT, PRESSURE DRESSING APPLIED. WRITTEN INSTRUCTIONS AND PRESCRIPTIONS GIVEN AND TAKEN WITH PATIENT. NO QUESTIONS AT THIS TIME. NO S&S OF DISTRESS NOTED. O2 @ 2L VIA NC ON PATIENT'S HOME O2 TANK. PATIENT TO CAR AT FRONT EXIT VIA WHEELCHAIR WITH STAFF PRESENT. PATIENT SAFELY TO CAR.
[2020-02-16] MEDS ORDERED: SIMVASTATIN 20 MG TAB PO SCH (21:00)
[2020-02-17] MEDS ORDERED: FAMOTIDINE 20 MG TAB PO SCH (09:00)
[2020-02-17] MEDS ORDERED: ONDANSETRON HCL 4 MG ORAL DISINTEGRATING TAB PO SCH (09:00)
[2020-02-17] MEDS ORDERED: LIDOCAINE 4% PATCH TP SCH (09:00)
--- NOTE | 2020-02-17 16:15 | Discharge Summary ---
ADMISSION DIAGNOSES: Acute blood loss anemia secondary to GI bleed, rib pain, hypertension, type 2 diabetes, chronic obstructive pulmonary disease without exacerbation, hyperlipidemia, obesity with a BMI of 41. DISCHARGE DIAGNOSES: Acute blood loss anemia secondary to GI bleed, rib pain, hypertension, type 2 diabetes, chronic obstructive pulmonary disease without exacerbation, hyperlipidemia, obesity with a BMI of 41. Rule out deep venous thrombosis. Rule out congestive heart failure. HISTORY: GERD, chronic pain, hypertension, type 2 diabetes, COPD, hyperlipidemia, and CO. SURGICAL HISTORY: Left elbow, bilateral shoulder surgery, left knee surgery, carpal tunnel release, hernia repair, right wrist surgery, right thumb surgery. FAMILY HISTORY: The patient's dad, grandmother, grandfather and brother had cancer. SOCIAL HISTORY: Noncontributory. HOSPITAL COURSE: A 69-year-old male admits with complaints of left-sided rib pain that he has had for one month. It began after forcefully blowing his nose. He is adamant that he does not have chest pain. He says he feels the muscle pain, when he blows his nose. On admission, the patient's hemoglobin was 6.6. The patient had a recent GI workup at [place] and it was known that he had an ulcer per EGD. He was ordered 2 units of PRBCs. He will continue his Pepcid and sucralfate as taken at home. He is tolerating p.o. At the time of discharge, the hemoglobin went up to 8.1. The patient was given prescription for lidocaine and muscle relaxer for the rib pain as he is already on methadone at home. Troponins were negative x2. Chest x-ray was negative. Echo showed an EF of 60% to 65%. Bilateral venous Doppler was negative for DVT, which was ordered since the patient complained of right leg swelling intermittently. The patient will be discharge home, where he already has physical therapy and home health arranged. The patient understands discharge instructions and agrees to plan. Vital signs stable. The patient is afebrile. Dictated by Danielle Singh NP MD NORMA Dang/MODL /[id number]
== END 2020-02-16 20:35 | disposition home or self-care (01) ==
LOC: ER 20:55 → ERHOLD 22:37 → MED/SURG 22:49
PROVIDERS: ADMIT Internal Medicine; ATTEND Internal Medicine
DX: D62 Acute posthemorrhagic anemia (principal); R07.89 Other chest pain; K92.2 Gastrointestinal hemorrhage, unspecified; R07.81 Pleurodynia; E66.01 Morbid (severe) obesity due to excess calories; I10 Essential (primary) hypertension; E11.9 Type 2 diabetes mellitus without complications; K21.9 Gastro-esophageal reflux disease without esophagitis; J44.9 Chronic obstructive pulmonary disease, unspecified; E78.5 Hyperlipidemia, unspecified; Z87.01 Personal history of pneumonia (recurrent); Z87.891 Personal history of nicotine dependence; Z68.41 Body mass index [BMI] 40.0-44.9, adult
CPT/HCPCS: 36415 ×2; 36430; 71045; 80048; 80053; 82550 ×2; 82553 ×2; 82948; 84484 ×2; 85014; 85018; 85025 ×2; 86850; 86900; 86920; 87635; 93005; 93306; 93970; 96360; 97139; 99283; C9113; G0378 ×2; J1756; J2270; J2405; J7050; P9016